=== PATIENT | female | born 1970 | race Caucasian/White ===

== ENCOUNTER 2020-07-08 07:50 | Outpatient (REF) | payer MEDICAID, SELFPAY | END 2020-07-08 07:51 | disposition home or self-care (01) | LOC: HO.LAB 07:50 | PROVIDERS: PCP Pediatrics; Visit Provider Internal Medicine | DX: Z20.828 Contact with and (suspected) exposure to other viral communicable diseases (principal) | CPT/HCPCS: C9803; U0003 ==

== ENCOUNTER → 2020-09-05 11:11 | Outpatient (BNVA) | payer MEDICAID, SELFPAY | PROVIDERS: PCP Pediatrics; Visit Provider Internal Medicine Gastroenterology ==

== ENCOUNTER 2020-09-21 12:01 | Outpatient (REF) | payer MEDICAID, SELFPAY ==
--- NOTE | ~2020-09-21 | MM_ITS ---
EXAMINATION: MM SCREENING DIGITAL BREAST TOMOSYNTHESIS, BILATERAL CLINICAL INFORMATION: Screening. Asymptomatic. COMPARISON: Mammography: May 13, 2019 and studies dating back to February 07, 2014 TECHNIQUE: Digital breast tomosynthesis is performed in both the craniocaudal and mediolateral oblique views along with computer-aided detection (CAD). Synthesized 2D images are generated from the tomosynthesis. FINDINGS: The breasts are heterogeneously dense, which may obscure small masses (ACR BI-RADS breast composition Category c). There are no significant masses, abnormal calcifications, or other abnormalities. MM/MM tomosynthesis screening BI IMPRESSION: There are no significant changes from prior study. ASSESSMENT: BI-RADS 1: Negative RECOMMENDATION: Routine annual mammography screening. This patient's information was entered into a reminder system with a target due date for their next mammogram.
== END 2020-09-21 12:02 | disposition home or self-care (01) ==
LOC: HO.MAMMO 12:01
PROVIDERS: PCP Pediatrics; Visit Provider Pediatrics
DX: Z12.31 Encounter for screening mammogram for malignant neoplasm of breast (principal)
CPT/HCPCS: 77063; 77067

== ENCOUNTER 2020-10-25 09:12 | Outpatient (REF) | payer MEDICAID, SELFPAY ==
[2020-10-25 10:03] LABS: MANUAL DIFF FLAG NO
[2020-10-25 10:19] LABS: Basophils Percent Auto 0.3 % (0-2); Eosinophils Absolute Auto 0.1 X10*3/uL (0.0-0.4); Eosinophils Percent Auto 1.2 % (0-4); Hematocrit 36.9 % (37-47); Imm Gran Abs Auto 0.01 X10*3/uL (0.00-0.03); Imm Gran Pct Auto 0.2 % (0.0-0.4); Lymphocytes Absolute Auto 1.8 X10*3/uL (1.2-4.9); Lymphocytes Percent Auto 28.1 % (20-40); Mean Corpuscular HGB Conc 35.2 g/dl (31.0-35.0); Mean Corpuscular Hemoglobin 31.6 pg (27.0-33.0); Mean Corpuscular Volume 89.6 fL (80-98); Mean Platelet Volume 11.3 fL (9.4-12.3); Monocytes Absolute Auto 0.4 X10*3/uL (0.1-1.2); Monocytes Percent Auto 6.2 % (2-11); Neutrophils Absolute Auto 4.2 X10*3/uL (2.0-8.3); Platelet Count 159 X10*3/uL (160-400); Red Blood Count 4.12 X10*6/uL (4.20-5.50); Red Cell Distribution Width 13.2 % (11.0-16.0); White Blood Count 6.5 X10*3/uL (4.8-10.8)
[2020-10-25 10:32] LABS: Alanine Aminotransferase 19 U/L (0-31); Alkaline Phosphatase 87 U/L (39-117); Anion Gap 13 (12-20); Aspartate Amino Transferase 16 U/L (5-31); Bilirubin Total 0.5 mg/dL (0.0-1.0); Blood Urea Nitrogen 15 mg/dL (9-16); Calcium 8.8 mg/dL (8.4-10.2); Carbon Dioxide 28 mmol/L (22-29); Chloride 106 mmol/L (96-108); Estimated Glomerular Filt Rate > 60; Glucose Random 104 mg/dL (60-115); Potassium 4.1 mmol/L (3.3-5.1); Sodium 143 mmol/L (135-145); Total Protein 6.9 g/dL (6.5-8.0)
[2020-10-25 10:55] LABS: Thyroid Stimulating Hormone 2.96 uIU/mL (0.32-4.0)
== END 2020-10-25 09:13 | disposition home or self-care (01) ==
LOC: HO.LAB 09:12
PROVIDERS: PCP Pediatrics; Visit Provider General Practice
DX: Z00.00 Encounter for general adult medical examination without abnormal findings (principal); K21.9 Gastro-esophageal reflux disease without esophagitis
CPT/HCPCS: 36415; 80053; 84443; 85025

== ENCOUNTER 2020-11-01 09:37 | Day surgery (SDC) | payer MEDICAID, SELFPAY ==
[2020-10-27 11:13] VITALS: BMI 28.3
--- NOTE | 2020-10-31 09:29 | HO.ANESPROP2 ---
Documented by User: Carolyn Vargas 10/31/20 12:19 HPI - Anesthesia Eval Consult details Narrative: 50yo F for Upper Endoscopy Reports adverse reaction to GA - fluid in lung - pt to bring letter PMFSH Active Problems Active Problems: All Active Problems (Updated 10/27/20 @ 11:14 by Renee Alvarez) Epigastric abdominal pain (Acute) Past Medical History Medical History Depression GERD (gastroesophageal reflux disease) History of headache Family History Family History Father Diabetes Pericardial effusion Mother Diabetes Surgical History Surgical History H/O colonoscopy H/O esophagogastroduodenoscopy H/O tubal ligation Social History Social History Household Members: Children Alcohol intake: current Alcohol intake frequency: holidays/special occasions only Smoking Status: Never smoker Use of substances other than those prescribed or required for medical reasons: No Have you been hit, kicked, punched, or otherwise hurt by someone within the past year? If so, by whom?: No Advance Directives Information Provided: No Recently lost weight without trying: No Meds Allergies Allergy/AdvReac Type Severity Reaction Status Date / Time prednisone [PREDNISONE] Allergy Severe ITCHINESS, Verified 09/05/20 11:12 itching, moodiness medroxyprogesterone Allergy Intermediate SHORTNESS Verified 09/05/20 11:12 [From DEPO-PROVERA] OF BREATH general anesthesia AdvReac Intermediate fluid in Uncoded 10/27/20 11:17 lung -per patient Home Medications Medication Instructions Recorded Confirmed Last Taken Type acetaminophen [Tylenol Extra 1,000 mg PO Q6H PRN 10/27/20 10/27/20 Unknown History Strength] cholecalciferol (vitamin D3) 50 mcg PO Q12H 10/27/20 10/27/20 Unknown History [Vitamin D3] lamotrigine [Lamictal] 200 mg PO BEDTIME 10/27/20 10/27/20 Unknown History pantoprazole 40 mg PO BID 10/27/20 10/27/20 Unknown History quetiapine 25 - 50 mg PO BEDTIME 10/27/20 10/27/20 Unknown History sumatriptan succinate 100 mg PO DAILY PRN 10/27/20 10/27/20 Unknown History Exam Exam Date and Time: October 31, 2020 0929 Height,Weight and Vital Signs: Height 4 ft 11 in Weight 63.503 kg Pertinent Lab Results Pertinent Lab Results: Laboratory Tests 10/25/20 10/25/20 09:30 09:30 WBC 6.5 Hgb 13.0 Hct 36.9 L Plt Count 159 L Sodium 143 Potassium 4.1 Chloride 106 Carbon Dioxide 28 BUN 15 Creatinine 0.97 Assessment and Plan Assessment Anesthesia Assessment: Chart Reviewed Documented by User: Emily Grimes 11/01/20 10:58 PMFSH Past Medical History Medical History Depression GERD (gastroesophageal reflux disease) History of headache Family History Family History Father Diabetes Pericardial effusion Mother Diabetes Surgical History Surgical History H/O colonoscopy H/O esophagogastroduodenoscopy H/O tubal ligation Social History Social History Household Members: Children Alcohol intake: current Alcohol intake frequency: holidays/special occasions only Smoking Status: Never smoker Use of substances other than those prescribed or required for medical reasons: No Have you been hit, kicked, punched, or otherwise hurt by someone within the past year? If so, by whom?: No Advance Directives Information Provided: No Recently lost weight without trying: No Meds Allergies Allergy/AdvReac Type Severity Reaction Status Date / Time prednisone [PREDNISONE] Allergy Severe ITCHINESS, Verified 09/05/20 11:12 itching, moodiness medroxyprogesterone Allergy Intermediate SHORTNESS Verified 09/05/20 11:12 [From DEPO-PROVERA] OF BREATH general anesthesia AdvReac Intermediate fluid in Uncoded 10/27/20 11:17 lung -per patient Home Medications Medication Instructions Recorded Confirmed Last Taken Type acetaminophen [Tylenol Extra 1,000 mg PO Q6H PRN 10/27/20 10/27/20 Unknown History Strength] cholecalciferol (vitamin D3) 50 mcg PO Q12H 10/27/20 10/27/20 Unknown History [Vitamin D3] lamotrigine [Lamictal] 200 mg PO BEDTIME 10/27/20 10/27/20 Unknown History pantoprazole 40 mg PO BID 10/27/20 10/27/20 Unknown History quetiapine 25 - 50 mg PO BEDTIME 10/27/20 10/27/20 Unknown History sumatriptan succinate 100 mg PO DAILY PRN 10/27/20 10/27/20 Unknown History Exam Airway Mallampati Class: II TM Dist: >3cm Neck ROM: Full Loose/Missing/Broken Teeth: No Heart: RRR Lungs: CTA Assessment and Plan Assessment Anesthesia Assessment: Anesthesia Plan Discussed and Chart Reviewed Final Anesthetic Review NPO: Yes ASA Class: II Final Preanesthetic Review: Meds/Allgs Chart Reviewed, Consent Obtained/Reviewed and Anes Risks/Benef Reviewed Patient Risk: Low Procedure Risk: Intermediate Anesthetic Plan Anesthetic Plan: MAC: Disposition: Standard PACU
[2020-11-01 10:29] VITALS: BP 134/82; PULSE 68; RESP 18; TEMP 36.6; O2SAT 98
--- NOTE | 2020-11-01 10:32 | P.HPSUR_ITS ---
Pre-Procedural Eval Section B Chief Complaint: epigastric pain Relevant Family History (Specify if Yes): No Relevant Social History: None Present Medications: see Short Stay Collaborative assessment Medical History: Significant History (Depression GERD (gastroesophageal reflux disease) History of headache) History of Previous Operations: Relevant previous surgery/procedure and date(s) (tubal ligation , egd) Allergies: Allergies Allergy/AdvReac Type Severity Reaction Status Date / Time prednisone [PREDNISONE] Allergy Severe ITCHINESS, Verified 09/05/20 11:12 itching, moodiness medroxyprogesterone Allergy Intermediate SHORTNESS Verified 09/05/20 11:12 [From DEPO-PROVERA] OF BREATH general anesthesia AdvReac Intermediate fluid in Uncoded 10/27/20 11:17 lung -per patient Review of Systems Sugical H&P ROS: Negative: Constitution, Cardiovascular, Respiratory, Neurological, Psychiatric, Hem-Onc, Allergic/Immunologic, Gastrointestinal, Genitourinary, Musculoskeletal, Integumentary, Endocrine and Eyes/Ears/Nose/Throat Exam Surgical H&P Exam: Normal: HEENT, Normal: Heart, Normal: Lungs, Normal: Extrem ities, Normal: Abdomen, Normal: Skin and Normal: Neurological Plan Diagnosis/Plan: Unchanged I have reviewed the history and physical and performed a pertinent physical examination on my patient. No changes have occurred unless specified.
[2020-11-01] MEDS: Lactated Ringers 1,000 ML 100 ML IVCONT (10:46)
--- NOTE | 2020-11-01 10:59 | PM.OP ---
Brief Operative Note Date of Service: 11/01/20 Pre-op diagnosis: epigastric pain, GERD Post-op diagnosis: same Procedure: see op note Surgeon: Mora Chavarria MD Anesthesia: MAC Estimated blood loss (mL): 0 Condition: stable Disposition: PACU
--- NOTE | 2020-11-01 11:00 | W.PM.OPN ---
Operative Note Operative Note Date of Service: 11/01/20 Narrative: Procedure Description: EGD FLEXIBLE TRANSORAL UPPER GASTROINTESTINAL ENDOSCOPY UPPER ENDOSCOPY Consent: Indications for the procedure and potential complications of bleeding, perforation, reaction to medications and missed diagnosis were discussed with the patient and informed consent was obtained. Instrument: Olympus GIF H 190 J mid size upper endoscope Monitoring: Vital signs and clinical assessment, continuous EKG monitoring, Pulse oximetry, Carbon Dioxide monitoring and blood pressure monitoring were done throughout the procedure. Procedure: The patient was placed in the left lateral decubitis position and pre-procedure medications were administered and a bite block was placed. The endoscope was inserted into the mouth and advanced under direct vision to the third part of duodenum. A careful inspection was made as the upper endoscope was withdrawn including a retroflexed examination of the proximal stomach; Findings and interventions are described below. Findings: Larynx:normal Esophagus: GE junction at 37 cm, diaphragm hiatus at 39 mc consistent with small 2 cm sliding hiatal hernia. No esophagitis seen, irregular Z line, bx taken Stomach: Mild gastric erythema. Biopsies were obtained for histology and culture of h pylori. Grade 2 flap valve on retroflexed examination of the cardia. There also appeared to be lack of gastric peristalsis. Duodenum: Normal bulb and descending duodenum, bx taken Intervention: Biopsies as noted above Impression and Post Procedure Diagnosis: Endoscopy Findings: gastritis small hiatal hernia possible delayed gastric emptying Plan: Await pathology results gastric emptying study
[2020-11-01 11:18] VITALS: BP 125/70; PULSE 74; RESP 20; TEMP 36.4; O2SAT 100
[2020-11-01 11:33] VITALS: BP 116/77; PULSE 70; RESP 18; O2SAT 99
== END 2020-11-01 12:10 | disposition home or self-care (01) ==
PROVIDERS: PCP Pediatrics; Visit Provider Internal Medicine Gastroenterology
PROC: 0DJ08ZZ Inspection of Upper Intestinal Tract, Via Natural or Artificial Opening Endoscopic (ICD-10-PCS; CPT 43235; principal; 2020-11-01 11:10)
DX: K29.50 Unspecified chronic gastritis without bleeding (principal); K21.9 Gastro-esophageal reflux disease without esophagitis; K44.9 Diaphragmatic hernia without obstruction or gangrene; G43.909 Migraine, unspecified, not intractable, without status migrainosus; Z79.899 Other long term (current) drug therapy; Z88.8 Allergy status to other drugs, medicaments and biological substances
CPT/HCPCS: 43239; 36415; 88305; 88342

== ENCOUNTER 2020-12-08 07:50 | Outpatient (REF) | payer MEDICAID, SELFPAY ==
--- NOTE | ~2020-12-08 | MM_ITS ---
EXAMINATION: MM DIAGNOSTIC DIGITAL BREAST TOMOSYNTHESIS, LEFT Targeted left breast ultrasound CLINICAL INFORMATION: Left breast lump 1:00 position COMPARISON: Mammography: September 21, 2020 and studies dating back to January 20, 2012 TECHNIQUE: Digital breast tomosynthesis is performed in both the craniocaudal and mediolateral oblique views along with computer-aided detection (CAD). Synthesized 2D images are generated from the tomosynthesis. Targeted left breast ultrasound. FINDINGS: The breasts are heterogeneously dense, which may obscure small masses (ACR BI-RADS breast composition Category c). There are no significant masses, abnormal calcifications, or other abnormalities. Targeted left breast ultrasound did not demonstrate any abnormal cystic or solid masses. No region of abnormal distal sound shadowing appreciated. Results are provided to the patient at time of visit by the technologist. MM/MM tomosynthesis diagnostic LT IMPRESSION: There are no significant changes from prior study. ASSESSMENT: BI-RADS 1: Negative RECOMMENDATION: Patient should be managed based on the clinical impression. Otherwise, routine annual screening mammography. This patient's information was entered into a reminder system with a target due date for their next mammogram.
--- NOTE | ~2020-12-08 | US_ITS ---
EXAMINATION: US DIAGNOSTIC ULTRASOUND BREAST, LEFT CLINICAL INFORMATION: Lump. COMPARISON: Mammography of same day and dating back to January 20, 2012. TECHNIQUE: Ultrasound of the breast is performed with real-time beatty scale imaging and color Doppler. FINDINGS: Targeted left breast ultrasound did not demonstrate any abnormal cystic or solid masses. No region of abnormal distal sound shadowing appreciated. Results are provided to the patient at time of visit by the technologist. US/US breast LT limited IMPRESSION: There are no significant changes from prior study. ASSESSMENT: BI-RADS 1: Negative RECOMMENDATION: Patient should be managed based on the clinical impression. Otherwise, routine annual screening mammography.
== END 2020-12-08 07:51 | disposition home or self-care (01) ==
LOC: HO.MAMMO 07:50
PROVIDERS: Visit Provider Pediatrics
DX: N63.21 Unspecified lump in the left breast, upper outer quadrant (principal)
CPT/HCPCS: 76642; 77061; 77065

== ENCOUNTER → 2020-12-26 08:01 | Outpatient (REF) | payer MEDICAID, SELFPAY ==
--- NOTE | ~2020-12-26 | NM_ITS ---
EXAMINATION: SD RADIONUCLIDE SOLID FOOD GASTRIC EMPTYING 4-HOUR STUDY CLINICAL INFORMATION: Epigastric pain. COMPARISON: None TECHNIQUE: A standard meal consisting of 4 oz of Egg Beaters brand tagged with 1.04 microcuries Tc-99m Sulfur Colloid, 8 oz water and 2 slices of toast with jelly was administered orally to the patient. Images were obtained using a dual head gamma camera in the anterior and posterior projections over of the stomach immediately post ingestion and at hourly intervals up to 4 hours post ingestion. The anterior and posterior counts at each time interval were averaged using the geometric mean and expressed as percentage of the immediate post ingestion counts. FINDINGS: There is good visualization of activity in the stomach immediately post ingestion. As the study progresses, there is good clearance of activity from the stomach and visualization of progressively increasing small bowel activity. By the end of the study, there is almost no retention noted in the stomach. Retention in the stomach at each time interval was: 1 hour 90% (normal 37%-90%) 2 hours 49% (normal 30%-60%) 3 hours 27% 4 hours 14% (normal 0%-10%) NM/SD gastric emptying study IMPRESSION: Slight delay in gastric emptying, 14% retained food at 4 hours.
== END ==
LOC: HO.NUCMED 08:01
PROVIDERS: Visit Provider Internal Medicine Gastroenterology
DX: R10.13 Epigastric pain (principal)
CPT/HCPCS: 78264; A9541

== ENCOUNTER 2021-01-30 10:10 | Outpatient (REF) | payer MEDICAID, SELFPAY ==
[2021-01-30 12:25] LABS: Estimated Average Glucose 80 mg/dL; Hemoglobin A1c % 4.4 %
[2021-02-01 23:52] LABS: ANA Pattern 3 Nuclear, Nucleolar; ANA Titer 2 1:40 titer; Anti Nuclear Antibody Screen POSITIVE (NEGATIVE); Anti Nuclear Antibody Titer 1:40 titer
[2021-02-05 19:41] LABS: Hu Antibody Screen, IFA Serum NEGATIVE (NEGATIVE); Yo Antibody, Serum Screen NEGATIVE (NEGATIVE)
== END 2021-01-30 10:11 | disposition home or self-care (01) ==
LOC: HO.LAB 10:10
PROVIDERS: PCP Pediatrics; Visit Provider Internal Medicine Gastroenterology
DX: R10.13 Epigastric pain (principal); R68.81 Early satiety; R79.82 Elevated C-reactive protein (CRP); Z88.8 Allergy status to other drugs, medicaments and biological substances; Z79.899 Other long term (current) drug therapy
CPT/HCPCS: 36415; 83036; 84181; 86038; 86039; 86255; 86256; 99212

== ENCOUNTER 2021-02-14 11:21 | Day surgery (SDC) | payer MEDICAID, SELFPAY ==
[2021-02-08 10:13] VITALS: BMI 28.3
--- NOTE | 2021-02-13 11:45 | P.CONAN_ITS ---
Documented by User: Carolyn Vargas 02/13/21 11:51 HPI - Anesthesia Eval Consult details Narrative: 50yo F for Upper Endoscopy with 100 units if botox Allergy to GA listed in med record. Laryngospasm based on outside facility documentation. Had EGD with MAC 10/2020 without issue. [facility] Active Problems Active Problems: All Active Problems (Updated 02/08/21 @ 10:12 by Carmen Mclain) Epigastric abdominal pain (Acute) Past Medical History Medical History (Updated 02/08/21 @ 10:12 by Carmen Mclain) Depression GERD (gastroesophageal reflux disease) Hiatal hernia History of headache Family History Family History Father Diabetes Pericardial effusion Mother Diabetes Surgical History Surgical History (Updated 02/08/21 @ 10:05 by Carmen Mclain) H/O colonoscopy H/O esophagogastroduodenoscopy H/O tubal ligation Social History Social History Household Members: Children Are you a primary home care and home health aides teacher to a significant other at home: No Do you presently have visiting nurse or other home services: No Alcohol intake: current Alcohol intake frequency: holidays/special occasions only Patient Tobacco Use Status: Never used Tobacco Use of substances other than those prescribed or required for medical reasons: No Have you been hit, kicked, punched, or otherwise hurt by someone within the past year? If so, by whom?: No Are you DNR?: No Advance Directives: No Advance Directives Information Provided: No Advance Directives on File: No Recently lost weight without trying: No Meds Allergies Allergy/AdvReac Type Severity Reaction Status Date / Time prednisone [PREDNISONE] Allergy Severe ITCHINESS, Verified 02/08/21 10:10 itching, moodiness medroxyprogesterone Allergy Intermediate SHORTNESS Verified 02/08/21 10:10 [From DEPO-PROVERA] OF BREATH general anesthesia AdvReac Intermediate fluid in Uncoded 02/08/21 10:10 lung -per patient Home Medications Medication Instructions Recorded Confirmed Last Taken Type acetaminophen [Tylenol Extra 1,000 mg PO Q6H PRN 10/27/20 02/08/21 Unknown History Strength] cholecalciferol (vitamin D3) 50 mcg PO Q12H 10/27/20 02/08/21 Unknown History [Vitamin D3] lamotrigine [Lamictal] 200 mg PO BEDTIME 10/27/20 02/08/21 Unknown History quetiapine 25 - 50 mg PO BEDTIME 10/27/20 02/08/21 Unknown History sumatriptan succinate 100 mg PO DAILY PRN 10/27/20 02/08/21 Unknown History meclizine 1 tab PO DAILY PRN 02/08/21 02/08/21 Unknown History pantoprazole 1 tab PO BID 02/08/21 02/08/21 Unknown History Exam Exam Date and Time: February 13, 2021 1145 Height,Weight and Vital Signs: Height 4 ft 11 in Weight 63.503 kg Assessment and Plan Assessment Anesthesia Assessment: Chart Reviewed Documented by User: Loren Mcfadden 02/14/21 12:08 [facility] Past Medical History Medical History (Updated 02/08/21 @ 10:12 by Carmen Mclain) Depression GERD (gastroesophageal reflux disease) Hiatal hernia History of headache Family History Family History Father Diabetes Pericardial effusion Mother Diabetes Surgical History Surgical History (Updated 02/08/21 @ 10:05 by Carmen Mclain) H/O colonoscopy H/O esophagogastroduodenoscopy H/O tubal ligation Social History Social History Household Members: Children Are you a primary home care and home health aides teacher to a significant other at home: No Do you presently have visiting nurse or other home services: No Alcohol intake: current Alcohol intake frequency: holidays/special occasions only Patient Tobacco Use Status: Never used Tobacco Use of substances other than those prescribed or required for medical reasons: No Have you been hit, kicked, punched, or otherwise hurt by someone within the past year? If so, by whom?: No Are you DNR?: No Advance Directives: No Advance Directives Information Provided: No Advance Directives on File: No Recently lost weight without trying: No Meds Allergies Allergy/AdvReac Type Severity Reaction Status Date / Time prednisone [PREDNISONE] Allergy Severe ITCHINESS, Verified 02/08/21 10:10 itching, moodiness medroxyprogesterone Allergy Intermediate SHORTNESS Verified 02/08/21 10:10 [From DEPO-PROVERA] OF BREATH general anesthesia AdvReac Intermediate fluid in Uncoded 02/08/21 10:10 lung -per patient Home Medications Medication Instructions Recorded Confirmed Last Taken Type acetaminophen [Tylenol Extra 1,000 mg PO Q6H PRN 10/27/20 02/08/21 Unknown History Strength] cholecalciferol (vitamin D3) 50 mcg PO Q12H 10/27/20 02/08/21 Unknown History [Vitamin D3] lamotrigine [Lamictal] 200 mg PO BEDTIME 10/27/20 02/08/21 Unknown History quetiapine 25 - 50 mg PO BEDTIME 10/27/20 02/08/21 Unknown History sumatriptan succinate 100 mg PO DAILY PRN 10/27/20 02/08/21 Unknown History meclizine 1 tab PO DAILY PRN 02/08/21 02/08/21 Unknown History pantoprazole 1 tab PO BID 02/08/21 02/08/21 Unknown History Exam Airway Mallampati Class: II TM Dist: >3cm Neck ROM: Full Heart: rrr Lungs: cta Assessment and Plan Assessment Anesthesia Assessment: Anesthesia Plan Discussed and Chart Reviewed Final Anesthetic Review NPO: Yes ASA Class: II Final Preanesthetic Review: No Changes in Pt Med Stat and Consent Obtained/Reviewed Patient Risk: Intermediate Procedure Risk: Intermediate Anesthetic Plan Anesthetic Plan: MAC: Disposition: Standard PACU
[2021-02-14 11:45] VITALS: BP 125/95; PULSE 78; RESP 20; TEMP 36.8; O2SAT 99
[2021-02-14] MEDS: Lactated Ringers 1,000 ML 100 ML IVCONT (11:52)
--- NOTE | 2021-02-14 11:53 | MHC.SHP ---
Pre-Procedural Eval Section A Date of Service: 02/14/21 The patient is an INPATIENT: No The History & Physical has been completed within 30 days and I have reviewed it.: Yes Section B Chief Complaint: gastroparesis Allergies: Allergies Allergy/AdvReac Type Severity Reaction Status Date / Time prednisone [PREDNISONE] Allergy Severe ITCHINESS, Verified 02/08/21 10:10 itching, moodiness medroxyprogesterone Allergy Intermediate SHORTNESS Verified 02/08/21 10:10 [From DEPO-PROVERA] OF BREATH general anesthesia AdvReac Intermediate fluid in Uncoded 02/08/21 10:10 lung -per patient Plan Diagnosis/Plan: Unchanged I have reviewed the history and physical and performed a pertinent physical examination on my patient. No changes have occurred unless specified. EGD with pyloric botox injection and dilation
--- NOTE | 2021-02-14 12:20 | P.BOP_ITS ---
Brief Operative Note Date of Service: 02/14/21 Pre-op diagnosis: epigastric pain, gastroparesis Post-op diagnosis: same Procedure: see op note Surgeon: Mora Chavarria MD Anesthesia: MAC Was an Cleaning Staff Supervisor used for this Procedure?: No Estimated blood loss (mL): 0 Condition: stable Disposition: PACU
--- NOTE | 2021-02-14 12:21 | W.PM.OPN ---
Operative Note Operative Note Date of Service: 02/14/21 Narrative: Procedure Description: EGD FLEXIBLE TRANSORAL UPPER GASTROINTESTINAL ENDOSCOPY UPPER ENDOSCOPY Consent: Indications for the procedure and potential complications of bleeding, perforation, reaction to medications and missed diagnosis were discussed with the patient and informed consent was obtained. Instrument: Olympus GIF H 190 J mid size upper endoscope Monitoring: Vital signs and clinical assessment, continuous EKG monitoring, Pulse oximetry, Carbon Dioxide monitoring and blood pressure monitoring were done throughout the procedure. Procedure: The patient was placed in the left lateral decubitis position and pre-procedure medications were administered and a bite block was placed. The endoscope was inserted into the mouth and advanced under direct vision to the third part of duodenum. A careful inspection was made as the upper endoscope was withdrawn including a retroflexed examination of the proximal stomach; Findings and interventions are described below. Findings: Larynx:normal Esophagus: GE junction at 37 cm, diaphragm hiatus at 39 mc consistent with small 2 cm sliding hiatal hernia. No esophagitis seen, irregular Z line, bx taken Stomach: Mild gastric erythema. Biopsies were obtained deu to prior hx of h pylori. Grade 2 flap valve on retroflexed examination of the cardia. There also appeared to be lack of gastric peristalsis. A 20 mm pyloric balloon was used to dilate the pylorus and heme was noted around the outlet. 100 units of botox was then injected after dilution in 5 cc saline in 1 cc amounts around the pylorus Duodenum: Normal bulb and descending duodenum, Intervention: Biopsies as noted above, ballon dilation, botox injection Impression and Post Procedure Diagnosis: Endoscopy Findings: gastritis small hiatal hernia delayed gastric emptying Plan: Await pathology results regular diet as tolerated
[2021-02-14 13:08] VITALS: BP 111/73; PULSE 86; RESP 16; TEMP 35.9; O2SAT 98
[2021-02-14 13:23] VITALS: BP 122/85; PULSE 78; RESP 16; TEMP 36.1; O2SAT 99
[2021-02-14] MEDS: Acetaminophen 325 MG TABLET 975 MG PO (13:25)
[2021-02-14] MEDS: Mag&Al/Sim/Diphenhyd/Lidocaine 10 ML ORAL.SUSP PO (13:26)
[2021-02-14 13:38] VITALS: BP 137/84; PULSE 66; RESP 16; O2SAT 97
[2021-02-14 13:53] VITALS: BP 131/80; PULSE 68; RESP 16; O2SAT 99
[2021-02-14 14:08] VITALS: BP 130/87; PULSE 72; RESP 16; TEMP 36.1; O2SAT 97
--- NOTE | 2021-02-14 14:56 | PC.NURSE ---
Patient reported post op epigatric pain. Vitals stable. Dr Chavarria evaluated patient at bedside & okayed her for discharge home. Patient stated Its much better than before . brought to D/C area to be given instructions as well as patient.
== END 2021-02-14 15:08 | disposition home or self-care (01) ==
PROVIDERS: PCP Pediatrics; Visit Provider Internal Medicine Gastroenterology
PROC: 0DJ08ZZ Inspection of Upper Intestinal Tract, Via Natural or Artificial Opening Endoscopic (ICD-10-PCS; CPT 43235; principal; 2021-02-14 12:50)
DX: K31.84 Gastroparesis (principal); K29.50 Unspecified chronic gastritis without bleeding; K21.9 Gastro-esophageal reflux disease without esophagitis; K30 Functional dyspepsia; K44.9 Diaphragmatic hernia without obstruction or gangrene; Z79.899 Other long term (current) drug therapy; Z88.8 Allergy status to other drugs, medicaments and biological substances; Z86.19 Personal history of other infectious and parasitic diseases
CPT/HCPCS: 43245; 43239; 43236; 88305; 88342; C1726; J0585

== ENCOUNTER → 2021-04-11 13:53 | Outpatient (BNVA) | payer MEDICAID, SELFPAY | PROVIDERS: PCP Pediatrics; Visit Provider Internal Medicine Gastroenterology ==

== ENCOUNTER → 2021-08-03 09:26 | Outpatient (BNVA) | payer MEDICAID, SELFPAY | PROVIDERS: PCP Pediatrics; Visit Provider Internal Medicine Gastroenterology ==

== ENCOUNTER 2021-09-26 08:21 | Outpatient (REF) | payer MEDICAID, SELFPAY ==
--- NOTE | ~2021-09-26 | MM_ITS ---
EXAMINATION: MM SCREENING DIGITAL BREAST TOMOSYNTHESIS, BILATERAL CLINICAL INFORMATION: Screening. Asymptomatic. The lifetime risk of breast cancer based on the Tyrer-Cuzick Model is 6%. COMPARISON: Mammography: 12/08/2020, 09/21/2020, 05/13/2019, 04/21/2018, targeted right breast ultrasound 05/01/2018, 02/25/2017, targeted left breast ultrasound 12/08/2020; bilateral breast MRI 05/29/2018. TECHNIQUE: Digital breast tomosynthesis is performed in both the craniocaudal and mediolateral oblique views along with computer-aided detection (CAD). Synthesized 2D images are generated from the tomosynthesis. FINDINGS: The breasts are heterogeneously dense, which may obscure small masses (ACR BI-RADS breast composition Category c). There is fibronodular parenchymal pattern is similar to prior studies. There are scattered shifting fibroglandular parenchymal densities overall similar to prior studies. There is no significant mass or architectural abnormality or developing density. No abnormal calcifications. The axilla and skin contours are unremarkable. MM/MM tomosynthesis screening BI IMPRESSION: No mammographic evidence of malignancy. ASSESSMENT: BI-RADS 2: Benign RECOMMENDATION: Routine annual mammography screening. This patient's information was entered into a reminder system with a target due date for their next mammogram.
== END 2021-09-26 08:22 | disposition home or self-care (01) ==
LOC: HO.MAMMO 08:21
PROVIDERS: PCP Pediatrics; Visit Provider Pediatrics
DX: Z12.31 Encounter for screening mammogram for malignant neoplasm of breast (principal)
CPT/HCPCS: 77063; 77067

== ENCOUNTER 2021-10-09 12:23 | Outpatient (REF) | payer MEDICAID, SELFPAY ==
--- NOTE | ~2021-10-09 | XR_ITS ---
EXAMINATION: XR KNEE, LEFT CLINICAL INFORMATION: Left knee pain COMPARISON: None TECHNIQUE: Four views of the left knee. FINDINGS: There is mild genu varus deformity left knee deformity without any visible fracture, loose body, bony erosive changes or joint effusion. There is a small anterior superior patellar enthesophyte. XR/XR knee LT 4V IMPRESSION: No acute fracture or dislocation. Mild genu varus knee appearance of right knee.
== END 2021-10-09 12:24 | disposition home or self-care (01) ==
LOC: HO.XRAY 12:23
PROVIDERS: PCP Pediatrics; Visit Provider Pediatrics
DX: M25.562 Pain in left knee (principal)
CPT/HCPCS: 73564

== ENCOUNTER → 2021-11-02 08:36 | Outpatient (BNVA) | payer MEDICAID, SELFPAY | PROVIDERS: PCP Pediatrics; Referring Provider Pediatrics; Visit Provider Internal Medicine Gastroenterology | DX: Z13.89 Encounter for screening for other disorder (principal) ==

== ENCOUNTER 2022-01-16 14:01 | Outpatient (REF) | payer MEDICAID, SELFPAY ==
--- NOTE | ~2022-01-16 | US_ITS ---
EXAMINATION: US PELVIS CLINICAL INFORMATION: Pelvic pain. COMPARISON: None. TECHNIQUE: Ultrasound of the pelvis is performed using both transabdominal and transvaginal transducers along with Doppler. Transvaginal imaging is performed due to inadequate visualization transabdominally. FINDINGS: Uterus: The uterus is anteverted and measures 7.6 cm in length, 4.0 mL in AP and 4.3 cm in transverse dimension. The double wall endometrial thickness is 0.8 cm. The uterus is smooth in contour and has normal myometrial echogenicity. No visible fibroid. Adnexa: Both ovaries are visualized. There is normal color flow to the adnexa. There is no ovarian torsion. There is no pelvic ascites or fluid collection. Right ovary measures 3.2 x 1.8 x 1.3 cm and volume 3.9 mL. It appears unremarkable. Previously right ovary measured 2.5 x 1.8 x 2.3 cm. Left ovary measures 2.8 x 2.1 x 1.5 cm and volume 4.6 mL. It appears unremarkable. Previously left ovary measured 2.3 x 1.7 x 1.9 cm. There is no free fluid in the cul-de-sac. US/US pelvic ovarian doppler IMPRESSION: Unremarkable uterus and ovaries. Normal bilateral arterial and venous flow seen to both ovaries on Doppler exam.
--- NOTE | ~2022-01-16 | US_ITS ---
EXAMINATION: US PELVIS CLINICAL INFORMATION: Pelvic pain. COMPARISON: None. TECHNIQUE: Ultrasound of the pelvis is performed using both transabdominal and transvaginal transducers along with Doppler. Transvaginal imaging is performed due to inadequate visualization transabdominally. FINDINGS: Uterus: The uterus is anteverted and measures 7.6 cm in length, 4.0 mL in AP and 4.3 cm in transverse dimension. The double wall endometrial thickness is 0.8 cm. The uterus is smooth in contour and has normal myometrial echogenicity. No visible fibroid. Adnexa: Both ovaries are visualized. There is normal color flow to the adnexa. There is no ovarian torsion. There is no pelvic ascites or fluid collection. Right ovary measures 3.2 x 1.8 x 1.3 cm and volume 3.9 mL. It appears unremarkable. Previously right ovary measured 2.5 x 1.8 x 2.3 cm. Left ovary measures 2.8 x 2.1 x 1.5 cm and volume 4.6 mL. It appears unremarkable. Previously left ovary measured 2.3 x 1.7 x 1.9 cm. There is no free fluid in the cul-de-sac. US/US pelvic and transvaginal IMPRESSION: Unremarkable uterus and ovaries. Normal bilateral arterial and venous flow seen to both ovaries on Doppler exam.
== END 2022-01-16 14:02 | disposition home or self-care (01) ==
LOC: HO.US 14:01
PROVIDERS: PCP Pediatrics; Visit Provider Pediatrics
DX: R10.2 Pelvic and perineal pain (principal)
CPT/HCPCS: 76830; 76856; 93975

== ENCOUNTER 2022-04-29 09:39 | Outpatient (REF) | payer MEDICAID, SELFPAY ==
[2022-04-29 10:39] LABS: MANUAL DIFF FLAG NO
[2022-04-29 10:42] LABS: Basophils Percent Auto 0.3 % (0-2); Eosinophils Absolute Auto 0.1 X10*3/uL (0.0-0.4); Hematocrit 37.2 % (37.0-47.0); Hemoglobin 12.8 g/dl (12.0-16.0); Imm Gran Abs Auto 0.01 X10*3/uL (0.00-0.03); Imm Gran Pct Auto 0.2 % (0.0-0.4); Lymphocytes Absolute Auto 1.6 X10*3/uL (1.2-4.9); Mean Corpuscular HGB Conc 34.4 g/dl (31.0-35.0); Mean Corpuscular Hemoglobin 30.2 pg (27.0-33.0); Mean Corpuscular Volume 87.7 fL (80.0-98.0); Mean Platelet Volume 10.9 fL (9.4-12.3); Monocytes Absolute Auto 0.4 X10*3/uL (0.1-1.2); Monocytes Percent Auto 6.3 % (2-11); Neutrophils Absolute Auto 3.7 x10*3/uL (2.0-8.3); Neutrophils Percent Auto 64.2 % (45-73); Platelet Count 160 X10*3/uL (160-400); Red Blood Count 4.24 X10*6/uL (4.20-5.50); Red Cell Distribution Width 13.8 % (11.0-16.0); White Blood Count 5.7 X10*3/uL (4.8-10.8)
[2022-04-29 11:05] LABS: Alanine Aminotransferase 20 U/L (0-31); Albumin Level 4.1 g/dL (3.5-5.0); Alkaline Phosphatase 95 U/L (39-117); Anion Gap 13 (12-20); Aspartate Amino Transferase 18 U/L (5-31); Bilirubin Total 0.5 mg/dL (0.0-1.0); Blood Urea Nitrogen 15 mg/dL (9-16); C Reactive Protein 0.19 mg/dL (< or = 0.50); Calcium 9.5 mg/dL (8.4-10.2); Carbon Dioxide 28 mmol/L (22-29); Chloride 109 mmol/L (96-108); Estimated Glomerular Filt Rate > 60; Glucose Random 102 mg/dL (60-115); Potassium 4.5 mmol/L (3.3-5.1); Sodium 145 mmol/L (135-145)
[2022-04-29 11:27] LABS: Erythrocyte Sedimentation Rate 14 MM/HR (0-20)
[2022-04-29 14:35] LABS: Protein/Creatinine Ratio, Ur 0.04 (<0.2); Total Protein Urine Random 8 mg/dL (<12)
== END 2022-04-29 09:40 | disposition home or self-care (01) ==
LOC: HO.10HDL 09:39
PROVIDERS: Visit Provider Internal Medicine Rheumatology
DX: M13.0 Polyarthritis, unspecified (principal); M79.601 Pain in right arm; M79.602 Pain in left arm; M25.50 Pain in unspecified joint; R76.8 Other specified abnormal immunological findings in serum; Z79.899 Other long term (current) drug therapy
CPT/HCPCS: 36415; 80053; 84156; 85025; 85652; 86140; 99202

== ENCOUNTER → 2022-05-03 08:55 | Outpatient (BNVA) | payer MEDICAID, SELFPAY | PROVIDERS: PCP Pediatrics; Referring Provider Pediatrics; Visit Provider Internal Medicine Gastroenterology | DX: K21.00 Gastro-esophageal reflux disease with esophagitis, without bleeding (principal); K29.70 Gastritis, unspecified, without bleeding | CPT/HCPCS: 99212 ==

== ENCOUNTER 2022-09-26 11:09 | Day surgery (SDC) | payer MEDICAID, SELFPAY ==
[2022-09-26 11:52] VITALS: BMI 30.1
[2022-09-26 11:56] VITALS: BMI 30.1
[2022-09-26 12:21] VITALS: BP 150/86; PULSE 74; RESP 18; TEMP 36.4; O2SAT 98
--- NOTE | 2022-09-26 12:50 | MHC.SHP ---
Pre-Procedural Eval Section A Date of Service: 09/26/22 Section B Chief Complaint: Gastroparesis,Epigastric pain Relevant Family History (Specify if Yes): No Relevant Social History: None Present Medications: see Short Stay Collaborative assessment Medical History: Significant History (Depression GERD (gastroesophageal reflux disease) Hiatal hernia History of headache) History of Previous Operations: Relevant previous surgery/procedure and date(s) (H/O colonoscopy H/O esophagogastroduodenoscopy H/O tubal ligation) Allergies: Allergies Allergy/AdvReac Type Severity Reaction Status Date / Time prednisone [PREDNISONE] Allergy Severe ITCHINESS, Verified 05/03/22 09:02 itching, moodiness medroxyprogesterone Allergy Intermediate SHORTNESS Verified 05/03/22 09:02 [From DEPO-PROVERA] OF BREATH general anesthesia AdvReac Intermediate fluid in Uncoded 05/03/22 09:02 lung -per patient Review of Systems Sugical H&P ROS: Negative: Constitution, Cardiovascular, Respiratory, Neurological, Psychiatric, Hem-Onc, Allergic/Immunologic, Gastrointestinal, Genitourinary, Musculoskeletal, Integumentary, Endocrine and Eyes/Ears/Nose/Throat Exam Surgical H&P Exam: Normal: HEENT, Normal: Heart, Normal: Lungs, Normal: Extremities, Normal: Abdomen, Normal: Skin and Normal: Neurological Plan Diagnosis/Plan: Unchanged I have reviewed the history and physical and performed a pertinent physical examination on my patient. No changes have occurred unless specified. Time Spent With Patient Time: Total time managing care of this patient today ____ minutes.
--- NOTE | 2022-09-26 12:50 | HO.ANESPROP2 ---
HPI - Anesthesia Eval Consult details Narrative: 52 yr old for upper endo with botox. history of laryngospasm with anesthesia after a PPTL ,requiring positive pressure , succ and lasix. recovered fine after. PMF Active Problems Active Problems: All Active Problems (Updated 04/29/22 @ 09:27 by Jorge Dhaliwal MD) Bilateral arm pain (Acute) Polyarthralgia (Acute) History of headache (Acute) Depression (Acute) YURI positive (Acute) Epigastric abdominal pain (Acute) Past Medical History Medical History Depression GERD (gastroesophageal reflux disease) Hiatal hernia History of headache Family History Family History Father Diabetes Pericardial effusion Mother Diabetes Family history of problems with anesthesia: No Surgical History Surgical History H/O colonoscopy H/O esophagogastroduodenoscopy H/O tubal ligation History of Problems with Anesthesia: No Social History Social History Household Members: Children Are you a primary acute care nurse practitioner to a significant other at home: No Do you presently have visiting nurse or other home services: No Alcohol intake: current Alcohol intake frequency: holidays/special occasions only Patient Tobacco Use Status: Never used Tobacco Use of substances other than those prescribed or required for medical reasons: No Are you DNR?: No Advance Directives: No Advance Directives Information Provided: Yes Meds Allergies Allergy/AdvReac Type Severity Reaction Status Date / Time prednisone [PREDNISONE] Allergy Severe ITCHINESS, Verified 05/03/22 09:02 itching, moodiness medroxyprogesterone Allergy Intermediate SHORTNESS Verified 05/03/22 09:02 [From DEPO-PROVERA] OF BREATH general anesthesia AdvReac Intermediate fluid in Uncoded 05/03/22 09:02 lung -per patient Home Medications Medication Instructions Recorded Confirmed Last Taken Type acetaminophen 500 mg tablet 1,000 mg PO Q6H PRN Pain 10/27/20 09/26/22 Unknown History (Tylenol Extra Strength) cholecalciferol (vitamin D3) 50 50 mcg PO Q12H 10/27/20 09/26/22 Unknown History mcg (2,000 unit) capsule (Vitamin D3) meclizine 25 mg tablet 1 tab PO DAILY PRN Dizziness 02/08/21 09/26/22 Unknown History lamotrigine 150 mg tablet 150 mg PO BEDTIME 04/11/21 09/26/22 Unknown History amitriptyline 50 mg tablet 50 mg PO BEDTIME 04/29/22 09/26/22 Unknown History pregabalin 75 mg capsule 75 mg PO BID 05/03/22 09/26/22 Unknown History quetiapine 25 mg tablet 50 mg PO BEDTIME 05/03/22 09/26/22 Unknown History rizatriptan 5 mg tablet 1 tab PO QD-BID PRN Migraine 09/26/22 09/26/22 Unknown History Headache Exam Exam Date and Time: September 26, 2022 1250 Height,Weight and Vital Signs: Height 4 ft 11 in Weight 67.585 kg Last Vital Signs Temp 97.5 F 09/26/22 12:21 Pulse 74 09/26/22 12:21 Resp 18 09/26/22 12:21 BP 150/86 H 09/26/22 12:21 Pulse Ox 98 09/26/22 12:21 O2 Del Method 09/26/22 12:21 Airway Mallampati Class: II TM Dist: >3cm Neck ROM: Full Heart: rrr Lungs: cta Assessment and Plan Assessment Anesthesia Assessment: Anesthesia Plan Discussed and Chart Reviewed Final Anesthetic Review Family History of Problems with Anesthesia: No History of Problems with Anesthesia: No NPO: Yes ASA Class: III Final Preanesthetic Review: No Changes in Pt Med Stat, Meds/Allgs Chart Reviewed, Consent Obtained/Reviewed and Anes Risks/Benef Reviewed Patient Risk: Low Procedure Risk: Low Anesthetic Plan Anesthetic Plan: MAC: Disposition: Standard PACU
--- NOTE | 2022-09-26 12:51 | W.PM.OPN ---
Operative Note Operative Note Date of Service: 09/26/22 Narrative: Procedure Description: EGD Indication: epigastric pain, hx of gastroparesis Anesthesia: MAC FLEXIBLE TRANSORAL UPPER GASTROINTESTINAL ENDOSCOPY UPPER ENDOSCOPY Consent: Indications for the procedure and potential complications of bleeding, perforation, reaction to medications and missed diagnosis were discussed with the patient and informed consent was obtained. Instrument: Olympus GIF H 190 J mid size upper endoscope Monitoring: Vital signs and clinical assessment, continuous EKG monitoring, Pulse oximetry, Carbon Dioxide monitoring and blood pressure monitoring were done throughout the procedure. Procedure: The patient was placed in the left lateral decubitis position and pre-procedure medications were administered and a bite block was placed. The endoscope was inserted into the mouth and advanced under direct vision to the third part of duodenum. A careful inspection was made as the upper endoscope was withdrawn including a retroflexed examination of the proximal stomach; Findings and interventions are described below. Findings: Larynx:normal Esophagus: GE junction at 37 cm, diaphragm hiatus at 39 cm, consistent with 2 cm sliding hiatal hernia, bogginess and erythema noted at GEJ, bx taken from GEJ and distal esophagus Stomach: Normal mucosa. Biopsies were obtained. Grade 2 flap valve on retroflexed examination of the cardia. There was improved peristalsis as compared to before. The pylorus was dialted to 20 mm with balloon and then 100 units of botox injected around the pyloric outlet Duodenum: Normal bulb and descending duodenum, Intervention: Biopsies as noted above, balloon dilation and botox injection Impression/Findings: esophagitis small hiatal hernia PLAN: PO diet as tolerated today check compliance with PPI GERd precautions
[2022-09-26 13:40] VITALS: BP 112/62; PULSE 67; RESP 16; TEMP 36.6; O2SAT 95
[2022-09-26 13:55] VITALS: BP 125/84; PULSE 68; RESP 16; TEMP 36.5; O2SAT 100
[2022-09-26 14:10] VITALS: BP 130/83; PULSE 59; RESP 16; TEMP 36.4; O2SAT 100
== END 2022-09-26 14:37 | disposition home or self-care (01) ==
PROVIDERS: PCP Pediatrics; Visit Provider Internal Medicine Gastroenterology
PROC: (CPT 43245; principal; 2022-09-26 12:40)
DX: R10.13 Epigastric pain (principal); K31.84 Gastroparesis; K20.80 Other esophagitis without bleeding; K44.9 Diaphragmatic hernia without obstruction or gangrene
CPT/HCPCS: 43245; 43239; 43236; 88305; 88342; C1726; J0585; J3010

== ENCOUNTER → 2022-10-18 10:12 | Outpatient (BNVA) | payer MEDICAID, SELFPAY | PROVIDERS: PCP Pediatrics; Visit Provider Internal Medicine Gastroenterology | DX: M25.50 Pain in unspecified joint (principal); F32.9 Major depressive disorder, single episode, unspecified; R10.13 Epigastric pain | CPT/HCPCS: 99212 ==

== ENCOUNTER 2022-11-25 12:02 | Outpatient (REF) | payer MEDICAID, SELFPAY ==
[2022-11-25 12:18] LABS: MANUAL DIFF FLAG NO
[2022-11-25 12:27] LABS: Basophils Percent Auto 0.3 % (0-2); Eosinophils Percent Auto 0.2 % (0-4); Hematocrit 37.5 % (37.0-47.0); Hemoglobin 13.1 g/dl (12.0-16.0); Imm Gran Abs Auto 0.03 X10*3/uL (0.00-0.03); Imm Gran Pct Auto 0.3 % (0.0-0.4); Lymphocytes Absolute Auto 1.5 X10*3/uL (1.2-4.9); Lymphocytes Percent Auto 16.8 % (20-40); Mean Corpuscular HGB Conc 34.9 g/dl (31.0-35.0); Mean Corpuscular Hemoglobin 30.3 pg (27.0-33.0); Mean Corpuscular Volume 86.6 fL (80.0-98.0); Mean Platelet Volume 10.5 fL (9.4-12.3); Monocytes Absolute Auto 0.5 X10*3/uL (0.1-1.2); Monocytes Percent Auto 5.2 % (2-11); Neutrophils Percent Auto 77.2 % (45-73); Platelet Count 197 X10*3/uL (160-400); Red Blood Count 4.33 X10*6/uL (4.20-5.50); Red Cell Distribution Width 13.4 % (11.0-16.0)
[2022-11-25 13:19] LABS: Erythrocyte Sedimentation Rate 38 MM/HR (0-20)
[2022-11-25 13:33] LABS: Alanine Aminotransferase 16 U/L (0-31); Albumin Level 4.1 g/dL (3.5-5.0); Alkaline Phosphatase 110 U/L (39-117); Anion Gap 12 (12-20); Aspartate Amino Transferase 15 U/L (5-31); Bilirubin Total 0.8 mg/dL (0.0-1.0); Blood Urea Nitrogen 12 mg/dL (9-16); C Reactive Protein 1.68 mg/dL (< or = 0.50); Calcium 9.6 mg/dL (8.4-10.2); Carbon Dioxide 28 mmol/L (22-29); Chloride 107 mmol/L (96-108); Estimated Glomerular Filt Rate > 60; Glucose Random 112 mg/dL (60-115); Iron 65 mcg/dL (30-160); Percent Iron Saturation 27 % (15-50); Potassium 4.2 mmol/L (3.3-5.1); Sodium 143 mmol/L (135-145); Total Iron Binding Capacity 239 mcg/dL (228-428); Total Protein 7.3 g/dL (6.5-8.0); Unsaturated Iron Binding 174 ug/dL
[2022-11-25 13:50] LABS: Ferritin 236 ng/mL (10-250); Folate 9.6 ng/mL (> or = 4.0); Vitamin B12 1156 pg/mL (200-900)
[2022-11-29 05:28] LABS: Zinc 83 mcg/dL (60-130)
[2022-11-29 08:43] LABS: Anti Nuclear Antibody Screen NEGATIVE (NEGATIVE)
[2022-11-29 16:28] LABS: Histamine Plasma <1.5 ng/mL (< OR = 1.8)
[2022-11-29 16:44] LABS: Vitamin B6 12.6 ng/mL (2.1-21.7)
[2022-12-01 18:07] LABS: Vitamin A 30 mcg/dL (38-98)
== END 2022-11-25 12:03 | disposition home or self-care (01) ==
LOC: HO.LAB 12:02
PROVIDERS: PCP Pediatrics; Visit Provider Internal Medicine Gastroenterology
DX: F32.9 Major depressive disorder, single episode, unspecified (principal); M25.50 Pain in unspecified joint; R10.13 Epigastric pain; K75.81 Nonalcoholic steatohepatitis (NASH); R19.7 Diarrhea, unspecified; R79.82 Elevated C-reactive protein (CRP)
CPT/HCPCS: 36415; 80053; 82607; 82728; 82746; 83088; 83520; 83540; 84207; 84590; 84630; 85025; 85652; 86038; 86039; 86140

== ENCOUNTER 2022-11-27 09:15 | Outpatient (REF) | payer MEDICAID, SELFPAY ==
--- NOTE | ~2022-11-27 | CT_ITS ---
EXAMINATION: CT ENTEROGRAPHY ABDOMEN AND PELVIS WITH CONTRAST CLINICAL INFORMATION: Periumbilical pain COMPARISON: Previous abdominal ultrasound April [address] of the abdomen and pelvis April 2016 TECHNIQUE: Study performed with oral VoLumen (1350 mL) and 480 mL of water to distend the abdomen. The patient was injected with 85 mL Omnipaque 350 intravenous contrast which was administered without adverse effect. Coronal and sagittal reformatted images were obtained at the technologist's workstation. This CT examination was performed using dose optimization techniques as appropriate, variously including the following: *Automated exposure control *Adjustment of mA and/or kV according to patient size (this includes techniques or standardized protocols for targeted exams where dose is matched to indication/reason for exam; i.e. extremities or head) *Use of iterative reconstruction technique DLP: 381 mGy-cm FINDINGS: GASTROINTESTINAL FINDINGS: Stomach: Well-distended and normal in appearance. Small intestine: Satisfactorily distended and normal in appearance. Large intestine: Well-distended and normal in appearance. No perirectal changes demonstrated. The appendix is normal. Additional findings: No abnormal enhancement of the vasa recta or significant mesenteric or retroperitoneal lymphadenopathy is seen. No abdominal abscess or fistulous tract demonstrated. ABDOMINAL AND PELVIC CT FINDINGS: Liver, gallbladder, biliary tract: Normal Pancreas: Normal Spleen: Normal Adrenal glands and kidneys: Normal Ureters and bladder: Normal Lymphovascular structures: No adenopathy. No ascites. There is reflux in the left ovarian vein. Vascular structures are otherwise normal. Bones: Normal Lung bases: Normal CT/CT enterography IMPRESSION: Normal CT enterography exam. Reflux in the left ovarian vein.
[2022-11-27] MEDS: Sorbitol/Mannit/Xanth Imaging 500 ML LIQUID 1500 ML PO (10:16)
[2022-11-27] MEDS: iohexoL 350 MG/ML 100 ML INFUS..BTL IV (10:17)
== END 2022-11-27 09:16 | disposition home or self-care (01) ==
LOC: HO.CT 09:15
PROVIDERS: PCP Pediatrics; Visit Provider Internal Medicine Gastroenterology
DX: R10.33 Periumbilical pain (principal)
CPT/HCPCS: 74177; Q9967

== ENCOUNTER 2022-12-02 15:19 | Outpatient (REF) | payer MEDICAID, SELFPAY ==
--- NOTE | ~2022-12-02 | MM_ITS ---
EXAMINATION: MM SCREENING DIGITAL BREAST TOMOSYNTHESIS, BILATERAL CLINICAL INFORMATION: Screening. Asymptomatic. The lifetime risk of breast cancer based on the Tyrer-Cuzick Model is 7%. COMPARISON: Mammography: 09/26/2021, 12/08/2020, 09/21/2020, 05/13/2019 TECHNIQUE: Digital breast tomosynthesis is performed in both the craniocaudal and mediolateral oblique views along with computer-aided detection (CAD). Synthesized 2D images are generated from the tomosynthesis. FINDINGS: The breasts are heterogeneously dense, which may obscure small masses (ACR BI-RADS breast composition Category c). Breast tissue composition borders on average fibroglandular. Parenchymal pattern is similar to prior studies. There is no developing density or architectural abnormality or significant changes. There are no significant masses, abnormal calcifications, or other abnormalities. There are benign bilateral vascular calcifications. The axilla and skin contours are unremarkable. MM/MM tomosynthesis screening BI IMPRESSION: No mammographic evidence of malignancy. ASSESSMENT: BI-RADS 2: Benign RECOMMENDATION: Routine annual mammography screening. This patient's information was entered into a reminder system with a target due date for their next mammogram.
== END 2022-12-02 15:20 | disposition home or self-care (01) ==
LOC: HO.MAMMO 15:19
PROVIDERS: PCP Pediatrics; Visit Provider Pediatrics
DX: Z12.31 Encounter for screening mammogram for malignant neoplasm of breast (principal)
CPT/HCPCS: 77063; 77067

== ENCOUNTER → 2022-12-13 09:40 | Outpatient (BNVA) | payer MEDICAID, SELFPAY | PROVIDERS: PCP Pediatrics; Visit Provider Internal Medicine Gastroenterology ==

== ENCOUNTER → 2022-12-26 08:25 | Outpatient (BNVA) | payer MEDICAID, SELFPAY | PROVIDERS: PCP Pediatrics; Visit Provider Internal Medicine Gastroenterology | DX: R10.9 Unspecified abdominal pain (principal) | CPT/HCPCS: 91110 ==

== ENCOUNTER → 2023-02-07 07:25 | Day surgery (SDC) | payer MEDICAID, SELFPAY ==
[2023-02-05 14:10] VITALS: BMI 30.1
[2023-02-07 07:51] VITALS: BMI 28.9
[2023-02-07 08:06] VITALS: BP 114/82; PULSE 72; RESP 16; TEMP 36.7; O2SAT 99
[2023-02-07] MEDS: Lactated Ringers 1,000 ML 100 ML IVCONT (08:18)
--- NOTE | 2023-02-07 08:19 | PC.NURSE ---
This nurse discussed with patient her recorded allergy of General Anesthesia . Patient states The last time I had general anesthesia, I had complications in recovery with fluid in my lungs and I coughed up blood . Dr. Grimes made aware.
--- NOTE | 2023-02-07 08:44 | HO.ANESPROP2 ---
[facility] Active Problems Active Problems: All Active Problems (Updated 04/29/22 @ 09:27 by Jorge Dhaliwal MD) Epigastric abdominal pain (Acute) YURI positive (Acute) Polyarthralgia (Acute) Bilateral arm pain (Acute) History of headache (Acute) Depression (Acute) Past Medical History Medical History Depression GERD (gastroesophageal reflux disease) Hiatal hernia History of headache Family History Family History Father Diabetes Pericardial effusion Mother Diabetes Family history of problems with anesthesia: No Surgical History Surgical History H/O colonoscopy H/O esophagogastroduodenoscopy H/O tubal ligation History of Problems with Anesthesia: No Social History Social History Household Members: Children Are you a primary residential care officer to a significant other at home: No Do you presently have visiting nurse or other home services: No Alcohol intake: current Alcohol intake frequency: holidays/special occasions only Patient Tobacco Use Status: Never used Tobacco Use of substances other than those prescribed or required for medical reasons: No Are you DNR?: No Advance Directives: No Advance Directives Information Provided: Yes Meds Allergies Allergy/AdvReac Type Severity Reaction Status Date / Time prednisone [PREDNISONE] Allergy Severe ITCHINESS, Verified 02/07/23 08:18 itching, moodiness medroxyprogesterone Allergy Intermediate SHORTNESS Verified 02/07/23 08:18 [From DEPO-PROVERA] OF BREATH general anesthesia AdvReac Intermediate fluid in Uncoded 02/07/23 08:18 lung -per patient Active Medications: Current Medications Lactated Ringer's (Lr) 1,000 mls @ 100 mls/hr IVCONT .Q10H CRISS Last Admin: 02/07/23 08:18 Dose: 100 mls/hr Home Medications Medication Instructions Recorded Confirmed Last Taken Type acetaminophen 500 mg tablet 1,000 mg PO Q6H PRN Pain 10/27/20 02/07/23 Unknown History (Tylenol Extra Strength) cholecalciferol (vitamin D3) 50 50 mcg PO Q12H 10/27/20 02/07/23 Unknown History mcg (2,000 unit) capsule (Vitamin D3) meclizine 25 mg tablet 1 tab PO DAILY PRN Dizziness 02/08/21 02/07/23 Unknown History lamotrigine 150 mg tablet 150 mg PO BEDTIME 04/11/21 02/07/23 Unknown History amitriptyline 50 mg tablet 50 mg PO BEDTIME 04/29/22 02/07/23 Unknown History pregabalin 75 mg capsule 75 mg PO BID 05/03/22 02/07/23 Unknown History quetiapine 25 mg tablet 50 mg PO BEDTIME 05/03/22 02/07/23 Unknown History rizatriptan 5 mg tablet 1 tab PO QD-BID PRN Migraine 09/26/22 02/07/23 Unknown History Headache Exam Exam Date and Time: February 07, 2023 0844 Height,Weight and Vital Signs: Height 4 ft 11 in Weight 64.864 kg Last Vital Signs Temp 98.0 F 02/07/23 08:06 Pulse 72 02/07/23 08:06 Resp 16 02/07/23 08:06 BP 114/82 02/07/23 08:06 Pulse Ox 99 02/07/23 08:06 O2 Del Method Room Air 02/07/23 08:06 Airway Mallampati Class: II TM Dist: >3cm Neck ROM: Full Denture: Upper Loose/Missing/Broken Teeth: Yes, Upper and Lower Heart: RRR Lungs: CTA Assessment and Plan Final Anesthetic Review Family History of Problems with Anesthesia: No History of Problems with Anesthesia: No NPO: Yes ASA Class: III Final Preanesthetic Review: Meds/Allgs Chart Reviewed, Consent Obtained/Reviewed and Anes Risks/Benef Reviewed Patient Risk: Intermediate Procedure Risk: Intermediate Anesthetic Plan Anesthetic Plan: MAC: Disposition: Standard PACU
--- NOTE | 2023-02-07 09:33 | PC.NURSE ---
Dr. Chavarria at bedside with patient and patients . Case cancelled due to lack of proper equipment for procedure, Pill cam device not in house. Patient to reschedule with Dr. Linares office. Lunch voucher given to patient from [facility].
== END ==
PROVIDERS: PCP Internal Medicine; Visit Provider Internal Medicine Gastroenterology
DX: K52.9 Noninfective gastroenteritis and colitis, unspecified (principal); Z53.29 Procedure and treatment not carried out because of patient's decision for other reasons; Z88.4 Allergy status to anesthetic agent

== ENCOUNTER 2023-03-13 06:21 | Day surgery (SDC) | payer MEDICAID, SELFPAY ==
[2023-03-11 15:38] VITALS: BMI 28.9
--- NOTE | 2023-03-13 06:26 | MHC.SHP ---
Pre-Procedural Eval Section A Date of Service: 03/13/23 Section B Chief Complaint: Epigastric pain Details of Present Illness: pill placement and pyloric dilation Relevant Family History (Specify if Yes): No Relevant Social History: None Present Medications: see Short Stay Collaborative assessment Medical History: Significant History (Depression GERD (gastroesophageal reflux disease) Hiatal hernia History of headache) History of Previous Operations: Relevant previous surgery/procedure and date(s) (H/O colonoscopy H/O esophagogastroduodenoscopy H/O tubal ligation) Allergies: Allergies Allergy/AdvReac Type Severity Reaction Status Date / Time prednisone [PREDNISONE] Allergy Severe ITCHINESS, Verified 02/07/23 08:18 itching, moodiness medroxyprogesterone Allergy Intermediate SHORTNESS Verified 02/07/23 08:18 [From DEPO-PROVERA] OF BREATH general anesthesia AdvReac Intermediate fluid in Uncoded 02/07/23 08:18 lung -per patient Review of Systems Sugical H&P ROS: Negative: Constitution, Cardiovascular, Respiratory, Neurological, Psychiatric, Hem-Onc, Allergic/Immunologic, Gastrointestinal, Genitourinary, Musculoskeletal, Integumentary, Endocrine and Eyes/Ears/Nose/Throat Exam Surgical H&P Exam: Normal: HEENT, Normal: Heart, Normal: Lungs, Normal: Extremities, Normal: Abdomen, Normal: Skin and Normal: Neurological Plan Diagnosis/Plan: Unchanged I have reviewed the history and physical and performed a pertinent physical examination on my patient. No changes have occurred unless specified. Time Spent With Patient Time: Total time managing care of this patient today ____ minutes.
[2023-03-13 06:45] VITALS: BP 123/80; PULSE 64; RESP 15; TEMP 36; O2SAT 97
[2023-03-13] MEDS: Lactated Ringers 1,000 ML 100 ML IVCONT (06:54)
--- NOTE | 2023-03-13 07:20 | HO.ANESPROP2 ---
Documented by User: Carolyn Vargas NP 03/12/23 10:59 HPI - Anesthesia Eval Consult details Narrative: 52yo F for Pyloric Balloon Upper Endoscopy PillCam Placement PMFSH Active Problems Active Problems: All Active Problems (Updated 04/29/22 @ 09:27 by Jorge Dhaliwal MD) Epigastric abdominal pain (Acute) YURI positive (Acute) Polyarthralgia (Acute) Bilateral arm pain (Acute) History of headache (Acute) Depression (Acute) Past Medical History Medical History Depression GERD (gastroesophageal reflux disease) Hiatal hernia History of headache Family History Family History Father Diabetes Pericardial effusion Mother Diabetes Family history of problems with anesthesia: No Surgical History Surgical History H/O colonoscopy H/O esophagogastroduodenoscopy H/O tubal ligation History of Problems with Anesthesia: No Social History Social History Household Members: Children Are you a primary direct support professional caregiver to a significant other at home: No Do you presently have visiting nurse or other home services: No Alcohol intake: current Alcohol intake frequency: holidays/special occasions only Patient Tobacco Use Status: Never used Tobacco Use of substances other than those prescribed or required for medical reasons: No Are you DNR?: No Advance Directives: No Advance Directives Information Provided: Yes Meds Allergies Allergy/AdvReac Type Severity Reaction Status Date / Time prednisone [PREDNISONE] Allergy Severe ITCHINESS, Verified 03/13/23 06:34 itching, moodiness medroxyprogesterone Allergy Intermediate SHORTNESS Verified 03/13/23 06:34 [From DEPO-PROVERA] OF BREATH general anesthesia AdvReac Intermediate fluid in Uncoded 02/07/23 08:18 lung -per patient Home Medications Medication Instructions Recorded Confirmed Last Taken Type acetaminophen 500 mg tablet 1,000 mg PO Q6H PRN Pain 10/27/20 03/13/23 Unknown History (Tylenol Extra Strength) cholecalciferol (vitamin D3) 50 50 mcg PO Q12H 10/27/20 03/13/23 Unknown History mcg (2,000 unit) capsule (Vitamin D3) meclizine 25 mg tablet 1 tab PO DAILY PRN Dizziness 02/08/21 03/13/23 Unknown History lamotrigine 150 mg tablet 150 mg PO BEDTIME 04/11/21 03/13/23 Unknown History amitriptyline 50 mg tablet 50 mg PO BEDTIME 04/29/22 03/13/23 Unknown History pregabalin 75 mg capsule 75 mg PO BID 05/03/22 03/13/23 Unknown History quetiapine 25 mg tablet 50 mg PO BEDTIME 05/03/22 03/13/23 Unknown History rizatriptan 5 mg tablet 1 tab PO QD-BID PRN Migraine 09/26/22 03/13/23 Unknown History Headache ondansetron 4 mg disintegrating 4 mg PO Q8H PRN Nausea And Vomiting 03/13/23 03/13/23 Unknown History tablet Exam Exam Date and Time: March 12, 2023 1058 Height,Weight and Vital Signs: Height 4 ft 11 in Weight 64.864 kg Assessment and Plan Assessment Anesthesia Assessment: Chart Reviewed Final Anesthetic Review Family History of Problems with Anesthesia: No History of Problems with Anesthesia: No Documented by User: Rayna Stuart DO 03/13/23 07:26 [facility] Past Medical History Medical History Depression GERD (gastroesophageal reflux disease) Hiatal hernia History of headache Family History Family History Father Diabetes Pericardial effusion Mother Diabetes Family history of problems with anesthesia: No Surgical History Surgical History H/O colonoscopy H/O esophagogastroduodenoscopy H/O tubal ligation History of Problems with Anesthesia: Yes (fluid in lungs with GA) Social History Social History Household Members: Children Are you a primary direct support professional caregiver to a significant other at home: No Do you presently have visiting nurse or other home services: No Alcohol intake: current Alcohol intake frequency: holidays/special occasions only Patient Tobacco Use Status: Never used Tobacco Use of substances other than those prescribed or required for medical reasons: No Are you DNR?: No Advance Directives: No Advance Directives Information Provided: Yes Meds Allergies Allergy/AdvReac Type Severity Reaction Status Date / Time prednisone [PREDNISONE] Allergy Severe ITCHINESS, Verified 03/13/23 06:34 itching, moodiness medroxyprogesterone Allergy Intermediate SHORTNESS Verified 03/13/23 06:34 [From DEPO-PROVERA] OF BREATH general anesthesia AdvReac Intermediate fluid in Uncoded 02/07/23 08:18 lung -per patient Home Medications Medication Instructions Recorded Confirmed Last Taken Type acetaminophen 500 mg tablet 1,000 mg PO Q6H PRN Pain 10/27/20 03/13/23 Unknown History (Tylenol Extra Strength) cholecalciferol (vitamin D3) 50 50 mcg PO Q12H 10/27/20 03/13/23 Unknown History mcg (2,000 unit) capsule (Vitamin D3) meclizine 25 mg tablet 1 tab PO DAILY PRN Dizziness 02/08/21 03/13/23 Unknown History lamotrigine 150 mg tablet 150 mg PO BEDTIME 04/11/21 03/13/23 Unknown History amitriptyline 50 mg tablet 50 mg PO BEDTIME 04/29/22 03/13/23 Unknown History pregabalin 75 mg capsule 75 mg PO BID 05/03/22 03/13/23 Unknown History quetiapine 25 mg tablet 50 mg PO BEDTIME 05/03/22 03/13/23 Unknown History rizatriptan 5 mg tablet 1 tab PO QD-BID PRN Migraine 09/26/22 03/13/23 Unknown History Headache ondansetron 4 mg disintegrating 4 mg PO Q8H PRN Nausea And Vomiting 03/13/23 03/13/23 Unknown History tablet Exam Exam Date and Time: March 13, 2023719 Height,Weight and Vital Signs: Height 4 ft 11 in Weight 64.864 kg Vital Signs Temperature 96.8 F 03/13/23 06:45 Pulse Rate 64 03/13/23 06:45 Respiratory Rate 15 03/13/23 06:45 Blood Pressure 123/80 03/13/23 06:45 Pulse Oximetry 97 03/13/23 06:45 Oxygen Delivery Method Room Air 03/13/23 06:45 Temperature 96.8 F 03/13/23 06:45 Pulse Rate 64 03/13/23 06:45 Respiratory Rate 15 03/13/23 06:45 Blood Pressure 123/80 03/13/23 06:45 Pulse Oximetry 97 03/13/23 06:45 Oxygen Delivery Method Room Air 03/13/23 06:45 Airway Mallampati Class: I TM Dist: >3cm Neck ROM: Full Loose/Missing/Broken Teeth: No Heart: S1S2 Lungs: CTAB Assessment and Plan Assessment Anesthesia Assessment: Anesthesia Plan Discussed and Chart Reviewed Final Anesthetic Review Family History of Problems with Anesthesia: No History of Problems with Anesthesia: Yes (fluid in lungs with GA) NPO: Yes ASA Class: II Final Preanesthetic Review: No Changes in Pt Med Stat, Meds/Allgs Chart Reviewed, Consent Obtained/Reviewed and Anes Risks/Benef Reviewed Patient Risk: Low Procedure Risk: Low Anesthetic Plan Anesthetic Plan: MAC: and Agree w/ Assess. and Plan Disposition: Standard PACU
--- NOTE | 2023-03-13 08:21 | W.PM.OPN ---
Operative Note Operative Note Date of Service: 03/13/23 Narrative: Procedure Description: EGD Indication: pyloric dilation and pill cam placement Anesthesia: MAC FLEXIBLE TRANSORAL UPPER GASTROINTESTINAL ENDOSCOPY UPPER ENDOSCOPY Consent: Indications for the procedure and potential complications of bleeding, perforation, reaction to medications and missed diagnosis were discussed with the patient and informed consent was obtained. Instrument: Olympus GIF H 190 J mid size upper endoscope Monitoring: Vital signs and clinical assessment, continuous EKG monitoring, Pulse oximetry, Carbon Dioxide monitoring and blood pressure monitoring were done throughout the procedure. Procedure: The patient was placed in the left lateral decubitis position and pre-procedure medications were administered and a bite block was placed. The endoscope was inserted into the mouth and advanced under direct vision to the third part of duodenum. A careful inspection was made as the upper endoscope was withdrawn including a retroflexed examination of the proximal stomach; Findings and interventions are described below. Findings: Larynx:normal Esophagus: GE junction at 38 cm, diaphragm hiatus at 38 cm, mild esophagitis noted with bogginess at GEJ Stomach: Patchy gastric erythema with retained food noted. Pylorus was dilated with balloon to 20 mm. Grade 2 flap valve on retroflexed examination of the cardia. Duodenum: Normal bulb and descending duodenum, pill cam capsule was deployed in the small bowel Intervention: pyloric dilation, pill cam insertion Impression/Findings: possible gastroparesis esophagitis PLAN: await capasule results, gastroparesis diet, (pos GES in past)
[2023-03-13 08:52] VITALS: BP 97/60; PULSE 74; RESP 20; TEMP 36.1; O2SAT 95
[2023-03-13 09:07] VITALS: BP 101/61; PULSE 61; RESP 16; O2SAT 98
[2023-03-13 09:22] VITALS: BP 113/79; PULSE 70; RESP 20; TEMP 36.4; O2SAT 97
== END 2023-03-13 09:44 | disposition home or self-care (01) ==
PROVIDERS: PCP Internal Medicine; Visit Provider Internal Medicine Gastroenterology
PROC: (CPT 91111; principal; 2023-03-13 07:30)
DX: K20.80 Other esophagitis without bleeding (principal); K21.9 Gastro-esophageal reflux disease without esophagitis; K44.9 Diaphragmatic hernia without obstruction or gangrene; F32.A Depression, unspecified; Z79.899 Other long term (current) drug therapy
CPT/HCPCS: 91111; 43245; C1726

== ENCOUNTER → 2023-03-13 06:21 | Outpatient (BNV) | payer MEDICAID, SELFPAY ==
--- NOTE | 2023-03-24 15:10 | A.OFFVIS_ITS ---
Intake Intake Visit Reasons: Epigastric pain Allergies prednisone [PREDNISONE] Allergy (Severe, Verified 03/13/23 06:34) ITCHINESS, itching, moodiness medroxyprogesterone [From DEPO-PROVERA] Allergy (Intermediate, Verified 03/13/23 06:34) SHORTNESS OF BREATH general anesthesia Adverse Reaction (Intermediate, Uncoded 02/07/23 08:18) fluid in lung -per patient PFSH Medical History Depression GERD (gastroesophageal reflux disease) Hiatal hernia History of headache Surgical History H/O colonoscopy H/O esophagogastroduodenoscopy H/O tubal ligation Family History Father Diabetes Pericardial effusion Mother Diabetes Social History Household Members: Children Are you a primary healthcare customer service to a significant other at home: No Do you presently have visiting nurse or other home services: No Alcohol intake: current Alcohol intake frequency: holidays/special occasions only Patient Tobacco Use Status: Never used Tobacco Office Procedures AMB Capsule Endoscopy Procedure Notes: Capsule endoscopy date of service: 03/13/23 Indication: abdominal pain Findings: retained food noted in stomach, rest of small bowel was normal, no masses, ulcers seen Conclusion: gastroparesis normal small bowel Capsule Endoscopy CPT Code: 31239 - Capsule Endoscopy Assessment & Plan Assessment & Plan (1) Epigastric abdominal pain: Code(s): R10.13 - Epigastric pain Medications: Discontinued ondansetron 4 mg PO Q8H 60 tabs 1RF Coding Level of Care Code Procedure Only Diagnoses Epigastric abdominal pain R10.13 CPT Codes AMB Capsule Endoscopy - Capsule Endoscopy CPT Code: 91849 - Capsule Endoscopy ([id number])
== END ==
PROVIDERS: PCP Internal Medicine; Visit Provider Internal Medicine Gastroenterology
DX: R10.13 Epigastric pain (principal)
CPT/HCPCS: 43249; 91110

== ENCOUNTER 2023-04-25 10:16 | Outpatient (AMB) | payer MEDICAID, SELFPAY ==
--- NOTE | 2023-04-25 10:16 | A.OFFVIS_ITS ---
Intake Intake Visit Reasons: pyloric balloon dil. and pill cam place; Dr Chavarria Intake Note: Koki presents as a video call today. CC: She had EGD w/ Dil and she states she still feels like she has an issue with the foods going down. She has lots of belching and not sure why she is having that. She needs new Rx for Vit A. Allergies prednisone [PREDNISONE] Allergy (Severe, Verified 03/13/23 06:34) ITCHINESS, itching, moodiness medroxyprogesterone [From DEPO-PROVERA] Allergy (Intermediate, Verified 03/13/23 06:34) SHORTNESS OF BREATH general anesthesia Adverse Reaction (Intermediate, Uncoded 02/07/23 08:18) fluid in lung -per patient HPI pyloric balloon dil. and pill cam place; Dr Chavarria HPI Details 52 yr old f being called for f/u RECAP- initially saw [facility] [place] ? Omeprazole changed to famotodine-- some improvement- but not great. Epigastric pain worsens after she eats, early satiety. ? h pylori stool ag-- 09/2019--neg ? h pylori 11/2019--neg ? EGD 11/2019 with esophagitis and sliding hiatal hernia, bx: chronic esophagitis, moderate inactive gastric inflammation ? ? ? rept EGD with esophagitis, gastritis, ? gastroparesis--2 cm hiatal hernia GES--14% at 4 hrs EGD 01/2021-- botox injected, small hiatal hernia, pylorus dilated with 20 mm balloon she felt 60-70% improved since the botox and pyloric dilation She was doing well with lansoprazole 30 mg BID, and taking vit D3 She had repeat EGD with botox inj and balloon dilation 09/2022 due to recurrence of sx, GEJ was inflammed and boggy --gastric motility looked good, she had small hiatal hernia due to ongoing sx of epigastric pain I ordered a CTe 11/2022- some reflux noted in left ovarian vein She had EGD with balloon dilation of pylorus capsule placement was done, with retained food and nml small bowel INTERIM: she had 30% improvement in sx after the dilation I sent vit A but pharmacy never received it she still has epigastrium discomfort and satiety still on elavil 50 mg daily at night EXAM: GENERAL: The patient is well developed and nontoxic. relaxed. Assessments ? 1. Chronic reflux esophagitis, gastritis , h pylori neg- s/p EGD with botox and dilation ongoing sx, ?epigastric pain syndrome also has gastroparesis etiology of which is uncertain PLAN: 1/ cont with PPI 2/ discussed options of trying other med s e.g motegrity, reglan and surgery referral for pyloroplasty but she is not keen on these options, also offered another dialtion but again she is not keen on this, advised on maybe seeking a second opinion--she will consider this, and if needs referral will let me know [facility] Medical History Depression GERD (gastroesophageal reflux disease) Hiatal hernia History of headache Surgical History H/O colonoscopy H/O esophagogastroduodenoscopy H/O tubal ligation Family History Father Diabetes Pericardial effusion Mother Diabetes Social History Household Members: Children Are you a primary animal care worker to a significant other at home: No Do you presently have visiting nurse or other home services: No Alcohol intake: current Alcohol intake frequency: holidays/special occasions only Patient Tobacco Use Status: Never used Tobacco Assessment & Plan Assessment & Plan Medications: Refilled vitamin A palmitate 10,000 units PO DAILY 90 tabs 1RF Telehealth Telehealth Location of provider rendering services: practice address Location of patient: address on file Patient Identification confirmed using: Name, : Yes Telehealth method: video Patient verbally consented to treatment: Yes Patient verbally consented to billing insurance company: Yes Patient informed of any privacy concerns related to visit: Yes Minutes spent on Phone/Video with Pt.: 9 Coding Level of Care Code Tele Est Pt Level 3 (38029)
== END 2023-04-25 12:26 | disposition home or self-care (01) ==
LOC: HO.HGI 10:16
PROVIDERS: PCP Internal Medicine; Visit Provider Internal Medicine Gastroenterology
DX: K21.00 Gastro-esophageal reflux disease with esophagitis, without bleeding (principal); K29.70 Gastritis, unspecified, without bleeding
CPT/HCPCS: 99213

== ENCOUNTER → 2023-04-25 10:16 | Outpatient (BNVA) | payer MEDICAID, SELFPAY | PROVIDERS: PCP Internal Medicine; Visit Provider Internal Medicine Gastroenterology ==

== ENCOUNTER 2023-12-04 14:29 | Outpatient (REF) | payer MEDICAID, SELFPAY | END 2023-12-04 14:30 | disposition home or self-care (01) | LOC: HO.MAMMO 14:29 | PROVIDERS: PCP Pediatrics; Visit Provider Pediatrics | DX: Z12.31 Encounter for screening mammogram for malignant neoplasm of breast (principal) | CPT/HCPCS: 77063; 77067 ==

== ENCOUNTER → 2023-12-04 15:00 | Outpatient (BNV) | payer MEDICAID, SELFPAY | PROVIDERS: PCP Pediatrics; Visit Provider Radiology Diagnostic Radiology | DX: Z12.31 Encounter for screening mammogram for malignant neoplasm of breast (principal) | CPT/HCPCS: 77063; 77067 ==

== ENCOUNTER 2024-04-28 10:12 | Outpatient (REF) | payer MEDICAID, SELFPAY ==
[2024-04-28 14:44] LABS: MANUAL DIFF FLAG NO
[2024-04-28 14:49] LABS: Basophils Percent Auto 0.4 % (0-2); Eosinophils Absolute Auto 0.1 X10*3/uL (0.0-0.4); Hematocrit 39.6 % (37.0-47.0); Hemoglobin 13.8 g/dl (12.0-16.0); Imm Gran Abs Auto 0.01 X10*3/uL (0.00-0.03); Imm Gran Pct Auto 0.2 % (0.0-0.4); Lymphocytes Absolute Auto 1.4 X10*3/uL (1.2-4.9); Lymphocytes Percent Auto 27.6 % (20-40); Mean Corpuscular HGB Conc 34.8 g/dl (31.0-35.0); Mean Corpuscular Hemoglobin 31.8 pg (27.0-33.0); Mean Corpuscular Volume 91.2 fL (80.0-98.0); Mean Platelet Volume 11.4 fL (9.4-12.3); Monocytes Absolute Auto 0.3 X10*3/uL (0.1-1.2); Monocytes Percent Auto 5.9 % (2-11); Neutrophils Absolute Auto 3.2 x10*3/uL (2.0-8.3); Neutrophils Percent Auto 64.9 % (45-73); Platelet Count 145 X10*3/uL (160-400); Red Blood Count 4.34 X10*6/uL (4.20-5.50); Red Cell Distribution Width 13.4 % (11.0-16.0); White Blood Count 4.9 X10*3/uL (4.8-10.8)
[2024-04-28 14:51] LABS: Appearance Urine Clear; Color Urine Yellow; Glucose Urine UA Negative (Negative); Leukocyte Esterase Urine Negative (Negative); Nitrite Urine Negative (Negative); PH 6.5 (5.0-9.0); Urine Blood Negative (Negative); Urine Ketones Negative (Negative); Urine Protein Negative (Neg-Trace)
[2024-04-28 14:55] LABS: Bacteria Urine None Seen (None Seen); Hyaline Casts Urine 0-2 /LPF (0-2); RBC Urine 0-2 /HPF (0-2); Squamous Epithelial Cell Urine 0-2 /HPF (0-2); WBC Urine 0-5 /HPF (0-5)
[2024-04-28 15:15] LABS: Alanine Aminotransferase 19 U/L (0-31); Albumin Level 4.1 g/dL (3.5-5.0); Alkaline Phosphatase 81 U/L (39-117); Anion Gap 13 (12-20); Aspartate Amino Transferase 19 U/L (5-31); Bilirubin Direct 0.2 mg/dL (0.0-0.5); Bilirubin Total 0.7 mg/dL (0.0-1.0); Blood Urea Nitrogen 12 mg/dL (9-16); Calcium 9.5 mg/dL (8.4-10.2); Carbon Dioxide 28 mmol/L (22-29); Chloride 108 mmol/L (96-108); Cholesterol 185 mg/dL (<200); Estimated Glomerular Filt Rate > 60; Glucose Fasting 100 mg/dL (60-99); HDL Cholesterol 44 mg/dL (>40); LDL Cholesterol Calculated 109 mg/dL (<100); Potassium 4.7 mmol/L (3.3-5.1); Sodium 144 mmol/L (135-145); Total Protein 7.3 g/dL (6.5-8.0); Triglycerides 164 mg/dL (<150)
[2024-04-28 15:24] LABS: TSH reflex Free T4 1.33 uIU/mL (0.32-4.0); Vitamin D 25-OH Total 44.8 ng/mL (>30)
[2024-04-28 15:35] LABS: Folate 8.3 ng/mL (> or = 4.0); Vitamin B12 1142 pg/mL (200-900)
== END 2024-04-28 10:13 | disposition home or self-care (01) ==
LOC: HO.CHCLDS 10:12
PROVIDERS: Visit Provider Pediatrics
DX: E55.9 Vitamin D deficiency, unspecified (principal); K44.9 Diaphragmatic hernia without obstruction or gangrene; K21.00 Gastro-esophageal reflux disease with esophagitis, without bleeding; R35.89 Other polyuria; F32.3 Major depressive disorder, single episode, severe with psychotic features; N95.1 Menopausal and female climacteric states
CPT/HCPCS: 36415; 80048; 80061; 80076; 81001; 82306; 82607; 82746; 84443; 85025

== ENCOUNTER 2024-05-03 08:42 | Outpatient (REF) | payer MEDICAID, SELFPAY ==
--- NOTE | ~2024-05-03 | CT_ITS ---
EXAMINATION: CT HEAD WITHOUT CONTRAST CLINICAL INFORMATION: Chronic headaches, sister with recent stroke, rule out brain mass. COMPARISON: None available. TECHNIQUE: Contiguous axial imaging was performed from the skull base to vertex without intravenous administration of contrast. This CT examination was performed using dose optimization techniques as appropriate, variously including the following: *Automated exposure control *Adjustment of mA and/or kV according to patient size (this includes techniques or standardized protocols for targeted exams where dose is matched to indication/reason for exam; i.e. extremities or head) *Use of iterative reconstruction technique DLP: 616 mGy-cm FINDINGS: There is no evidence of intracranial hemorrhage or extra-axial fluid collection. There is no mass effect, or edema. No CT evidence of acute territorial infarct. Ventricles, sulci, and cisterns are normal in size and configuration for patient age. No hydrocephalus. No midline shift. No significant white matter abnormalities. Normal sella. Globes and orbital contents image normally. No extracranial soft tissue abnormalities. The paranasal sinuses, mastoid air cells, and tympanic cavities are normally aerated. No suspicious bony abnormalities. CT/CT head/brain wo IV con IMPRESSION: No acute intracranial pathology. Normal examination. Electronically signed by: Atilio Vu MD 06/30/2024 02:21 PM SHIRA
== END 2024-05-03 08:43 | disposition home or self-care (01) ==
LOC: HO.CT 08:42
PROVIDERS: PCP Pediatrics; Visit Provider Pediatrics
DX: G43.001 Migraine without aura, not intractable, with status migrainosus (principal)
CPT/HCPCS: 70450

== ENCOUNTER → 2024-05-03 08:44 | Outpatient (BNV) | payer MEDICAID, SELFPAY | PROVIDERS: PCP Pediatrics; Visit Provider Radiology Diagnostic Radiology | DX: R51.9 Headache, unspecified (principal) | CPT/HCPCS: 70450 ==

== ENCOUNTER → 2024-05-17 09:20 | Outpatient (REF) | payer MEDICAID, SELFPAY ==
--- NOTE | 2024-05-17 09:25 | CA_ITS ---
Acquisition Time: 2024-05-17 09:34:51 Total Exercise Time: 00:09:37 Test Indications: CHEST PAIN Medications: Protocol: JONATAN Max HR: 150 BPM 89% of Pred: 168 BPM Max BP: 168/060 mmHG Max Work Load: 11.1 METS Exercise stress test with exercise 9 min 37 sec of Jonatan protocol, achieving 89% MPHR, 11.1 METs, without anginal symptoms, without arrythmia, with normotensive response to exercise, with baseline EKG showing T wave abnormality inferolateral leads, then with exercise EKGs are normal without changes meeting criteria for ischemia. Test reviewed with Dr Davenport Referred By: Anastasiia Lucas Overread By: FELICITA UNDERWOOD
== END ==
LOC: HO.CARD 09:20
PROVIDERS: PCP Pediatrics; Visit Provider Pediatrics
DX: R07.89 Other chest pain (principal); Z82.49 Family history of ischemic heart disease and other diseases of the circulatory system
CPT/HCPCS: 93017

== ENCOUNTER → 2024-05-17 09:25 | Outpatient (BNV) | payer MEDICAID, SELFPAY | PROVIDERS: PCP Pediatrics; Visit Provider Nurse Practitioner Family | DX: R07.9 Chest pain, unspecified (principal) | CPT/HCPCS: 93016; 93018 ==

== ENCOUNTER 2024-12-06 09:10 | Outpatient (REF) | payer MEDICAID, SELFPAY ==
--- OUTSIDE RECORDS SUMMARY | 2024-12-06 09:19 | XMS_ITS | Clinical Summary ---
Author Organization [employer] Address [address] [place] [address] Care Team Providers Care Automation Tender Name Role Phone Anastasiia Lucas MD Primary Care Provider [phone] Allergies Active Allergy Reactions Criticality Noted Date Comments Prednisone Itching 01/16/2012 Promethazine Other reaction(s): vomiting Medications rizatriptan (Maxalt) 5 MG tablet TAKE 1 TABLET BY MOUTH ONCE A DAY, MAY REPEAT DOSE IN 2 HOURS IF NEEDED. *MAX 2 DOSES IN 24HOURS 2 Active QUEtiapine (SEROquel) 25 MG tablet TAKE ONE OR TWO TABLETS BY MOUTH AT BEDTIME 3 Active lamoTRIgine (LaMICtal) 25 MG tablet Take 2 tablets by mouth in the morning. 3 Active lamoTRIgine (LaMICtal) 150 MG tablet Take 1 tablet by mouth in the morning. 3 Active lamoTRIgine (LaMICtal) 100 MG tablet Take 1 tablet by mouth in the morning. 3 Active pregabalin (Lyrica) 75 MG capsule Take 1 capsule (75 mg) by mouth 2 times daily. 60 capsule 3 3 Active cholecalciferol (D3 Super Strength) 50 MCG (1999 UT) capsule TAKE 1 CAPSULE BY MOUTH EVERY TWELVE HOURS WITH MEALS 180 capsule 1 3 Active polyethylene glycol-electroly vandana (Nulytely) 420 g solution TAKE 240 MLS BY MOUTH EVERY 10 MINUTES UNTIL FECAL EFFLUENT IS CLEAR 3 Active mirtazapine (Remeron) 7.5 MG tablet Take 1 tablet (7.5 mg) by mouth at bedtime. 30 tablet 3 5 12/19/19 25 Active pantoprazole (ProtoNix) 20 MG EC tabletIndication s:Hiatal hernia with GERD and esophagitis TAKE 1 TABLET BY MOUTH TWICE A DAY 180 tablet 1 5 Active Active Problems Problem Noted Date Diagnosed Date H/O hiatal hernia 10/16/2022 Gastroesophageal reflux dise ase with esophagitis without hemorrhage 10/16/2022 Severe major depression with psychotic features 08/15/2017 Vitamin D deficiency 01/16/2012 Migraine 01/16/2012 Encounters Date Type Department Care Team Description 10/08/2024 Population Health Risk Score Community [facility] () Department [address] [address] Provider, Population Health Generic 09/30/2024 Refill [facility] [address] [place] [address] Anastasiia Lucas MD Hiatal hernia with GERD and esophagitis from Last 3 Months Immunizations Name Administration Dates Next Due Influenza injectable quadriv alent IIV4 with preservative 05/12/2019,05/26/2018,08/15/2017,2015,05/23/2015 Influenza injectable quadriv alent preservative free 05/14/2023,06/05/2022,06/20/2021,2019 Influenza, IIV3, injectable 05/05/2014, 9 Influenza, Split (incl. jeremy fied surface antigen) 05/05/2013,05/21/2012 Influenza, seasonal, injecta ble, preservative free 04/28/2024 Moderna Covid-19 Vaccine 12+ 12/23/2020,11/26/19 21 TD (adult), 2 Lf tetanus tox oid, preservative free, adsorbed 07/05/2005 Tdap 10/29/2016 Zoster, Recombinant 04/04/2022,01/31/2022 Social History Tobacco Use Types Packs/Day Years Used Date Smoking Tobacco: Never Passive Smoke Exposure: Never Smokeless Tobacco: Never Tobacco Cessation:Counseling Given: Not Answered Housing Stability Answer Date Recorded What is your housing situation today? I have yolette delgadillo 04/20/[address] you li ve. Do you have problems with any of the following? None of the above 04/20/2024 Food Insecurity Answer Date Recorded Within the past 12 months, y ou worried that your food would run out before you got money to buy more: Never True 04/20/2024 Within the past 12 months,th e food you bought just didn't last and you didn't have enough money to get more: Never True Transportation Answer Date Recorded In the past 12 months, has l ack of transportation kept you from medical appts, meetings, work or from getting things needed for daily living? No 04/20/2024 Utilities Answer Date Recorded In the past 12 months, has t he electric, gas, oil or water company threatened to shut off services in your home? No 04/20/2024 Depression Answer Date Recorded Patient Health Questionnaire-2 Score 3 10/16/2022 Internet Access Answer Date Recorded Internet Access Q1 Yes 04/20/2024 Internet Access Q2 Not on file 04/20/2024 Comments Unknown Sex and Gender Information Value Date Recorded Sex Assigned at Female 05/27/2022 10:20 AM EDT Legal Sex Female 10:20 AM EDT Gender Identity Female 05/27/2022 10:20 AM EDT Sexual Orientation Straight 05/27/2022 10 :20 AM EDT Last Filed Vital Signs Vital Sign Reading Time Taken Comments Blood Pressure 114/64 08/20/2024 8:59 AM EST Pulse 68 08/20/2024 8:59 AM EST Temperature 36.7 ??C (98.1 ??F) 08/20/2024 8:59 AM ES T Respiratory Rate 16 08/20/2024 8:59 AM EST Oxygen Saturation 98% 07/02/2024 9:07 AM EST Inhaled Oxygen Concentration - - Weight 58.1 kg (128 lb) 08/20/2024 8:59 AM EST Height 149.9 cm (4' 11 ) 08/20/2024 8:59 AM EST Body Mass Index 25.85 08/20/2024 8:59 AM EST Plan of Treatment Health Maintenance Due Date Last Done Comments CT Colonography 1971 FIT DNA/Cologuard 1971 FIT 1971 FOBT 1971 HIV Screening 1971 Sigmoidoscopy 1971 Hepatitis C Screening 1989 Hepatitis B Vaccines (1 of 3 - 19+ 3-dose series) 1990 Pneumococcal Vaccine: 50+ Years (1 of 1 - PCV) 2021 Depression Screening 10/17/2023 10/16/2022, 10/17/19 23 COVID-19 Vaccine (3 - season) 2024 12/23/2020, 11/25/2020 Pap Smear 06/20/2024 06/20/2021 Mammogram 12/03/2024 12/04/2023, 05/0 02/2023, 09/26/2021, Additional history exists SDOH Screening 04/20/2025 04/20/2024 Alcohol/Substance Use Screening 07/02/2025 07/02/2024 Tobacco Screening 08/20/2025 08/20/2024 Cervical Cancer Screening 06/20/2026 HPV/Cotest 06/20/2026 06/20/2021 DTaP/Tdap/Td Vaccines (2 - Td or Tdap) 10/29/2026 10/29/2016, 07/05/2005 Colonoscopy 06/27/2029 Colorectal Cancer Screening 06/27/2029 RSV Patients and Patients Aged 60 years or older (1 - 1-dose 75+ series) 2046 Zoster Vaccines Completed 04/04/2022, 01/31/2022 Influenza Vaccine Completed 04/28/2024, , 06/05/2022, Additional history exists HIB Vaccines Aged Out No longer eligi ble based on patient's age to complete this topic HPV Vaccines Aged Out No longer eligi ble based on patient's age to complete this topic Hepatitis A Vaccines Aged Out No long er eligible based on patient's age to complete this topic IPV Vaccines Aged Out No longer eligi ble based on patient's age to complete this topic Meningococcal Vaccine Aged Out No ginny cris eligible based on patient's age to complete this topic RSV under 20 months Aged Out No longe r eligible based on patient's age to complete this topic Rotavirus Vaccines Aged Out No longer eligible based on patient's age to complete this topic Procedures Procedure Name Priority Date/Time Associated Diagnosis Comments BI MAMMOGRAM SCREENING TOMOSYNTHESIS BILATERAL Routine 12/04/2023 2:50 PM EDT THINPREP IMAGING PAP AND HPV MRNA E6/E7 WITH REFLEX TO HPV 16,18/45 Routine 06/20/2021 11:28 AM EST from Last 3 Months or Most Recently Relevant to Health Maintenance Results * BI Mammogram Screening Tomosynthesis Bilateral (12/04/2023 2:50 PM EDT) Anatomical Region Laterality Modality Breast Bilateral Mammography 12/04/2023 2:50 PM EDT Narrative 01/02/2024 9:09 AM EDT ? [facility] [place] ? [address] ?[place] [address] ? Mammography Report ? Signed ? Patient: Koki Bennett ?MR#: [id number] ?? 84 ? : 1970 ?Acct:[id number] ? Age/Sex: 53 / F ?ADM Date: 12/04/23 ? Loc: HO.MAMMO ? Attending Dr: Anastasiia Lucas MD ? Ordering Physician: Anastasiia Lucas MD ?Results: 1Ne ?? gative ? Date of Service: 12/04/23 ?Follow Up: 1 Year From Orig ?? inal Mammogram ? Procedure(s): MM tomosynthesis screening BI ?? Accession Number(s): [id number] ? cc: Anastasiia Lucas MD ? EXAMINATION: ?? MM SCREENING DIGITAL BREAST TOMOSYNTHESIS, BILATERAL ? CLINICAL INFORMATION: ? Screening. Asymptomatic. ? COMPARISON: ?? Mammography: This study is compared with prior exams dating back to ?? 2018. ? TECHNIQUE: ?? Digital breast tomosynthesis is performed in both the craniocaudal and ?? mediolateral oblique views along with computer-aided detection (CAD). ?? Synthesized 2D images are generated from the tomosynthesis. ? FINDINGS: ?? There are scattered areas of fibroglandular density (ACR BI-RADS breast ?? composition Category b). ? There are no significant masses, abnormal calcifications, or other ?? abnormalities. ? MM/MM tomosynthesis screening BI ?? IMPRESSION: ?? No mammographic evidence of malignancy. ? ASSESSMENT: ? BI-RADS BI-RADS 1 - Negative ? RECOMMENDATION: ?? Routine annual mammography screening. ? 1 year F/U ? This examination should not preclude the clinical evaluation of a ?? suspicious palpable abnormality. ? This patient's information was entered into a reminder system with a ?? target due date for their next mammogram. ? Dictated By: ?Phyllis Sanchez MD ? Signed By: ?<Electronically signed by Phyllis Sanchez MD in OV> ? 01/02/24 09 ? DD/ 1450 ? TD/TT: ? Er Tech: ? Procedure Note Vidal Dobson - 01/02/2024 [facility] [address] [place] [address] Dr. [place], [place] [address] Mammography Report Signed Patient: Deng Bennett#: [id number] : 1970Acct:[id number] Age/Sex: 53 / FADM Date: 12/04/23 Loc: [facility] Attending Dr: Anastasiia Lucas MD Ordering Physician: Anastasiia Lucasesults: 1Ne gative Date of Service: 12/04/23Follow Up: 1 Year From Orig inal Mammogram Procedure(s): MM tomosynthesis screening BI Accession Number(s): [id number] cc: Anastasiia Lucas MD EXAMINATION: MM SCREENING DIGITAL BREAST TOMOSYNTHESIS, BILATERAL CLINICAL INFORMATION: Screening. Asymptomatic. COMPARISON: Mammography: This study is compared with prior exams dating back to 2019. TECHNIQUE: Digital breast tomosynthesis is performed in both the craniocaudal and mediolateral oblique views along with computer-aided detection (CAD). Synthesized 2D images are generated from the tomosynthesis. FINDINGS: There are scattered areas of fibroglandular density (ACR BI-RADS breast composition Category b). There are no significant masses, abnormal calcifications, or other abnormalities. MM/MM tomosynthesis screening BI IMPRESSION: No mammographic evidence of malignancy. ASSESSMENT: BI-RADS BI-RADS 1 - Negative RECOMMENDATION: Routine annual mammography screening. 1 year F/U This examination should not preclude the clinical evaluation of a suspicious palpable abnormality. This patient's information was entered into a reminder system with a target due date for their next mammogram. Dictated By: Phyllis Sanchez MD Signed By: <Electronically signed by Phyllis Sanchez MD in OV> 01/02/24 0905 DD/ 1450 TD/TT: Er Tech: Anastasiia Lucas MD [facility] BI PROCEDURES Edited Resu lt - Final * THINPREP TIS PAP AND HPV mRNA E6/E7 REFLEX HPV 16,18/45 (06/20/2021 11:28 AM EST) Clinical Information: None given [facility] COMMENT SEE COMMENT [facility] Comment: EXPLANATORY NOTE: ? The Pap is a screening test for cervical cancer. It is ?? not a diagnostic test and is subject to false negative ?? and false positive results. It is most reliable when a ?? satisfactory sample, regularly obtained, is submitted ?? with relevant clinical findings and history, and when ?? the Pap result is evaluated along with historic and ?? current clinical information. ?? COMMENT: This Pap test has been evaluated with computer assisted technology. [facility] Assistant Womens Volleyball Coach: SEE COMMENT [facility] Comment: HJP, CT(ASCP) CT screening location: [address] ??[id number] HPV nRNA E6/E7 Not Detected Not Detected [facility] Comment: Methodology: Pigeon Fancier-Mediated Amplification This assay detects E6/E7 viral messenger RNA (mRNA) from 14 high-risk HPV types (16,18,31,33,35,39,45,51,52,56,58,59,66,68). ? The analytical performance characteristics of this assay have been determined by [employer]. The modifications have not been cleared or approved by the FDA. This assay has been validated pursuant to the CLIA regulations and is used for clinical purposes. ?? For additional information, please refer to http://education.Showpad/faq/GQE116v1 (This link if provided for information/ educational purposes only.) Interpretation/Re sult: Negative for intraepithelial lesion or malignancy. [facility] LMP: 11/25/2020 [facility] Prev. BX: NONE GIVEN [facility] Prev. PAP: 05/26/2018 [facility] SOURCE: Cervix [facility] Statement Of Adequacy: SEE COMMENT [facility] Comment: Satisfactory for evaluation. Endocervical/transformation zone component absent. 06/20/2021 11:2 8 AM EST us Anastasiia Lucas MD LAB PATHOLOGY ORDERABLES Mandy noriega Result [facility] [address] from Last 3 Months or Most Recently Relevant to Health Maintenance Insurance [facility] [address] [place] [address] Care Teams Automation Tender Relationship Specialty Start Date End Date Anastasiia Lucas MD [address] [place] [id number] PCP - General Family Medicine 07/28/18
--- OUTSIDE RECORDS SUMMARY | 2024-12-06 09:19 | XMS_ITS | Encounter Summary ---
Author Organization [employer] Address [address] [place] [address] Care Team Providers Care Stem Roller Or Crusher Operator Name Role Phone Anastasiia Lucas MD Primary Care Provider [phone] Encounter Details Date Type Department Care Team ([facility] st Contact Info) Description 04/29/2024 Telephone [facility] MED & PEDS [address], [place] [phone] Anastasiia Lucas MD [address] [place], [place] [phone] Social History Tobacco Use Types Packs/Day Years Used Date Smoking Tobacco: Never Passive Smoke Exposure: Never Smokeless Tobacco: Never Housing Stability Answer Date Recorded What is [...] Orientation Straight 05/27/2022 10 :20 AM EDT documented as of this encounter Plan of Treatment Not on file documented as of this encounter Visit Diagnoses Not on filedocumented in this encounter Care Teams Stem Roller Or Crusher Operator Relationship Specialty Start Date End Date Anastasiia Lucas MD [address] [place] [id number] PCP - General Family Medicine 07/28/18 documented as of this encounter
--- OUTSIDE RECORDS SUMMARY | 2024-12-06 09:19 | XMS_ITS | Clinical Summary ---
Author Organization [employer] [facility] it Address [address] [place] [address] Care Team Providers Care First Aid Instructor Name Role Phone Unavailable Primary Care Provider Unavailabl e Surgical History Surgery Date Site/Laterality Comments OTHER SURGICAL HISTORY PROCEDURE: [place] LIG/TRNSXJ FLP TUBE ABDL/VAG APPR UNI/BI Medical History Medical History Date Comments Anxiety state, unspecified DX:An xiety state, unspecified Family History Medical History Relation Name Comments Diabetes Brother Coronary artery disease Father Diabetes Father Hypertension Father Coronary artery disease Mother Diabetes Mother Hypertension Mother Relation Name Status Comments Brother Father Alive Mother Alive Social History Tobacco Use Types Packs/Day Years Used Date Smoking Tobacco: Never Alcohol Use Standard Drinks/Week Comments No 0 (1 standard drink = 0.6 oz pur e alcohol) Comments Unknown Sex and Gender Information Value Date Recorded Sex Assigned at Not on file Legal Sex Female 5:07 AM EST Gender Identity Not on file Sexual Orientation Not on file Obstetrics History Plan of Treatment Health Maintenance Due Date Last Done Comments Breast Cancer Screening 1971 Hepatitis B Vaccines (1 of 3 - 19+ 3-dose series) 1990 Cervical Cancer Screening: P ap Smear 1992 DTaP,Tdap,and Td Vaccines (2 - Td or Tdap) 07/05/2015 07/05/2005 Pneumococcal Vaccine: 50+ Ye ars (1 of 1 - PCV) 2021 Zoster Vaccines (1 of 2) 2021 COVID-19 Vaccine (2023-2 5 season) 2024 Influenza Vaccine (Season Ended) 2025 HIB Vaccines Aged Out No longer eligi [...] on patient's age to complete this topic MMR Vaccines Aged Out No longer eligi ble based on patient's age to complete this topic Meningococcal ACWY Vaccine Aged Out N o longer eligible based on patient's age to complete this topic Meningococcal B Vaccine Aged Out No l onger eligible based on patient's age to complete this topic Pneumococcal Vaccine: Pediat rics (0 to 5 Years) and At-Risk Patients (6 to 64 Years) Aged Out No longer eligi ble based on patient's age to complete this topic RSV Immunization Patients Un adrienne 20 months Aged Out No longer eligible b ased on patient's age to complete this topic Varicella Vaccines Aged Out No longer eligible based on patient's age to complete this topic
== END 2024-12-06 09:11 | disposition home or self-care (01) ==
LOC: HO.MAMMO 09:10
PROVIDERS: PCP Pediatrics; Visit Provider Pediatrics
DX: Z13.89 Encounter for screening for other disorder (principal)

== ENCOUNTER 2025-02-15 12:11 | Outpatient (REF) | payer MEDICAID, SELFPAY ==
--- NOTE | ~2025-02-15 | MM_ITS ---
EXAMINATIONS: 1. MM DIAGNOSTIC DIGITAL BREAST TOMOSYNTHESIS, BILATERAL 2. US BREAST LIMITED LEFT CLINICAL INFORMATION: Left lump in upper-outer quadrant. Right breast pain. According to the patient, pain has resolved and unable to feel left breast lump today. COMPARISON: Comparison made to multiple prior, most recent December 04, 2023, and most remote February 15, 2016. TECHNIQUE: Digital breast tomosynthesis is performed in both the craniocaudal and mediolateral oblique views along with computer-aided detection (CAD). Synthesized 2D images are generated from the tomosynthesis. Skin marker was placed in the region of previously felt lump in the left breast. FINDINGS: BREAST COMPOSITION: There are scattered areas of fibroglandular density (ACR BI-RADS breast composition Category b). RIGHT BREAST: No significant masses, suspicious calcifications or other abnormalities are seen. LEFT BREAST: No significant masses, suspicious calcifications or other abnormalities are seen. In particular, no suspicious mammographic findings in the vicinity of the skin BB marker. Targeted ultrasound of the left breast was performed at that location of the previously felt a lump as indicated by the patient. The survey performed throughout the upper outer quadrant does not reveal suspicious sonographic findings. MM/MM tomosynthesis diagnostic BI IMPRESSION: RIGHT BREAST: Negative, no mammographic evidence of malignancy. Normal interval follow-up is recommended in 12 months. LEFT BREAST: Negative, no evidence of malignancy. No suspicious finding to accounts for patient's prior palpable concern. Clinical follow-up is recommended, independent of imaging findings. Otherwise, normal interval follow-up mammogram is recommended in 12 months. ASSESSMENT: BI-RADS 1 - Negative RECOMMENDATION: 1 year F/U Results were provided to the patient at time of visit by the technologist. This patient's information was entered into a reminder system with a target due date for their next mammogram. Electronically signed by: Eldon Richardson MD 02/15/2025 05:49 PM EDT
--- OUTSIDE RECORDS SUMMARY | 2025-02-15 13:16 | XMS_ITS | Clinical Summary ---
Author Organization [employer] [facility] it Address [address] [place] [address] Care Team Providers Care Airport Operations Crew Member Name Role Phone Unavailable Primary Care Provider Unavailabl e Surgical History Surgery Date Site/Laterality Comments OTHER SURGICAL HISTORY PROCEDURE: [place] LIG/TRNSXJ FLP TUBE ABDL/VAG APPR UNI/BI Medical [...] Vaccines (1 of 2) 2021 COVID-19 Vaccine ( - 2023-2 5 season) 2024 Depression Screening 07/28/2024 Influenza Vaccine (#1) 2025 HIB Vaccines Aged Out No longer [...]
--- OUTSIDE RECORDS SUMMARY | 2025-02-15 13:16 | XMS_ITS | Encounter Summary ---
Author Organization [employer] Address [address] [facility] [address] [place] [address] Care Team Providers Care Dial Painter Name Role Phone Anastasiia Lucas MD Primary Care Provider [phone] Encounter Details Date Type Department Care Team (Latest Contact Info) Description 02/10/2025 Travel Social History Tobacco Use Types Packs/Day Years [...] as of this encounter Plan of Treatment Upcoming Encounters Date Type Department Care Team ([facility] st Contact Info) Description 04/13/2025 9:15 AM EDT Office Visit [facility] MED & PEDS [address] [place] [address] Anastasiia Lucas MD [address] [place] [address] documented as of this encounter Visit Diagnoses Not on filedocumented in this encounter Care Teams Dial Painter Relationship Specialty Start Date End Date Anastasiia Lucas MD [address] [place] [address] PCP - General Family Medicine 07/28/18 documented as of this encounter
== END 2025-02-15 12:12 | disposition home or self-care (01) ==
LOC: HO.MAMMO 12:11
PROVIDERS: PCP Pediatrics; Visit Provider Family Medicine
DX: N64.4 Mastodynia (principal); N63.21 Unspecified lump in the left breast, upper outer quadrant
CPT/HCPCS: 76642; 77062; 77066

== ENCOUNTER → 2025-02-15 12:30 | Outpatient (BNV) | payer MEDICAID, SELFPAY | PROVIDERS: PCP Pediatrics; Visit Provider Radiology Body Imaging | DX: N64.4 Mastodynia (principal); N63.21 Unspecified lump in the left breast, upper outer quadrant | CPT/HCPCS: 76642; 77062; 77066 ==

== ENCOUNTER 2025-04-05 09:19 | Outpatient (REF) | payer MEDICAID, SELFPAY ==
--- NOTE | 2025-04-05 09:22 | EMG_ITS ---
Chief complaint: Chronic pain of left wrist Reason for referral: NCV/ EMG Referred by: Anastasiia Lucas MD Procedure done: Nerve conduction study and EMG was performed of left upper extremity, symptomatic extremity Left median and ulnar motor and sensory studies were performed left radial sensory and median lateral antecubital brachial sensory studies were performed an EMG needle examination was performed Impression: 1. Mild left median neuropathy across carpal tunnel 2. Mild ulnar neuropathy across elbow MTDD
--- OUTSIDE RECORDS SUMMARY | 2025-04-05 10:45 | XMS_ITS | Clinical Summary ---
Author Organization [employer] [facility] it Address [address] [place] [address] Care Team Providers Care Nutrition Assistant Name Role Phone Unavailable Primary Care Provider Unavailabl e Surgical History Surgery Date Site/Laterality Comments OTHER SURGICAL HISTORY PROCEDURE: [place] LIG/TRNSXJ FLP TUBE ABDL/VAG APPR UNI/BI Medical [...] 2021 Zoster Vaccines (1 of 2) 2021 Depression Screening 07/28/2024 COVID-19 Vaccine ( - 2023-2 5 season) 2025 Influenza Vaccine (#1) 2025 HIB Vaccines Aged [...]
--- OUTSIDE RECORDS SUMMARY | 2025-04-05 10:45 | XMS_ITS | Encounter Summary ---
Author Organization [employer] Address [address] [facility] [address]t [place] [address] Care Team Providers Care Hydrate Control Tender Name Role Phone Anastasiia Lucas MD Primary Care Provider [phone] Encounter Details Date Type Department Care Team ([facility] Contact Info) Description 04/29/2024 Telephone C [facility] MED [facility]S [address] [place], [place] [phone] Anastasiia Lucas MD [address] [place], [place] [phone] Social History Tobacco Use Types Packs/Day Years [...] Upcoming Encounters Date Type Department Care Team (Late st Contact Info) Description 04/13/2025 9:15 AM EDT Office Visit [facility] MED & PEDS [address] [place] [address] Anastasiia Lucas MD [address] [place] [address] documented as of this encounter Visit Diagnoses Not on filedocumented in this encounter Care Teams Hydrate Control Tender Relationship Specialty Start Date End Date Anastasiia Lucas MD [address] [place] [address] PCP - General Family Medicine 07/28/18 documented as of this encounter
--- OUTSIDE RECORDS SUMMARY | 2025-04-05 10:45 | XMS_ITS | Encounter Summary ---
Author Organization [employer] Address [address] [facility] [address] [place] [address] Care Team Providers Care Green Inspector Name Role Phone Anastasiia Lucas MD Primary Care Provider [phone] Reason for Visit * Reason Comments Med Refill Encounter Details Date Type Department Care Team ([facility] Contact Info) Description 03/31/2025 Refill [facility] MED & PEDS [address] [place], [place] [phone] Anastasiia Lucas MD [address] [place] [address] Hiatal hernia with GERD and esophagitis Social History Tobacco Use Types Packs/Day Years [...] Description 04/13/2025 9:15 AM EDT Office Visit [facility] MED & PEDS [address] [place] [address] Anastasiia Lucas MD [address] [place] [address] documented as of this encounter Visit Diagnoses Diagnosis Hiatal hernia with GERD and esophagitis documented in this encounter Care Teams Green Inspector Relationship Specialty Start Date End Date Anastasiia Lucas MD [address] [place] [address] PCP - General Family Medicine 07/28/18 documented as of this encounter
--- OUTSIDE RECORDS SUMMARY | 2025-04-05 10:45 | XMS_ITS | Clinical Summary ---
Author Organization [employer] Address [address] [facility] [address] [place] [address] Care Team Providers Care Fruit Culler Name Role Phone Anastasiia Lucas MD Primary Care Provider [phone] Allergies Active Allergy Reactions Criticality Noted Date Comments Prednisone Itching 01/16/2012 Promethazine Other reaction(s): vomiting Medications rizatriptan (Maxalt) 5 MG tablet TAKE 1 TABLET BY MOUTH ONCE A DAY, MAY REPEAT DOSE IN 2 HOURS IF NEEDED. *MAX 2 DOSES IN 24HOURS 06/25/20 22 Active QUEtiapine (SEROquel) 25 MG tablet TAKE ONE OR TWO TABLETS BY MOUTH AT BEDTIME 08/27/19 23 Active lamoTRIgine (LaMICtal) 25 MG tablet Take 2 tablets by mouth in the morning. 08/25/19 23 Active lamoTRIgine (LaMICtal) 150 MG tablet Take 1 tablet by mouth in the morning. 08/25/19 23 Active lamoTRIgine (LaMICtal) 100 MG tablet Take 1 tablet by mouth in the morning. 08/25/19 23 Active pregabalin (Lyrica) 75 MG capsule Take 1 capsule (75 mg) by mouth 2 times daily. 60 capsule 3 10/17/19 23 Active cholecalciferol (D3 Super Strength) 50 MCG (2000 UT) capsule TAKE 1 CAPSULE BY MOUTH EVERY TWELVE HOURS WITH MEALS 180 capsule 1 05/26/20 23 Active polyethylene glycol-electrol ytes (Nulytely) 420 g solution TAKE 240 MLS BY MOUTH EVERY 10 MINUTES UNTIL FECAL EFFLUENT IS CLEAR 12/14/19 23 Active mirtazapine (Remeron) 7.5 MG tablet Take 1 tablet (7.5 mg) by mouth at bedtime. 30 tablet 3 02/11/20 25 Active pantoprazole (ProtoNix) 20 MG EC tabletIndicatio ns:Hiatal hernia with GERD and esophagitis TAKE 1 TABLET BY MOUTH TWICE A DAY 180 tablet 1 03/31/20 25 Active pantoprazole (ProtoNix) 20 MG EC tabletIndicatio ns:Hiatal hernia with GERD and esophagitis TAKE 1 TABLET BY MOUTH TWICE A DAY 180 tablet 1 10/01/19 25 025 Discontinued Active Problems Problem Noted Date Diagnosed Date Mass of upper outer quadrant of left breast 03/2025 Assessment & Plan (01/03/2025 11:30 AM EDT): Patient experiencing global bilateral breast pain, non cyclic and left breast with mass 3.5 cm x 1.0 cm at 3 o'clock LMP 2-3 yrs ago Following CRICO guidelines needs bilateral diagnostic mammo and left side breast US - schedule f/up with PCP in 1 mo H/O hiatal hernia 10/16/2022 Gastroesophageal reflux dise ase with esophagitis without hemorrhage 10/16/2022 Severe major depression with psychotic features 08/15/2017 Vitamin D deficiency 01/16/2012 Migraine 01/16/2012 Resolved Problems Problem Noted Date Diagnosed Date Resolved Date Breast pain, right 01/03/2025 Encounters Date Type Department Care Team Description 03/31/2025 Refill [facility] [address] [place] [address] Anastasiia Lucas MD Hiatal hernia with GERD and esophagitis 02/16/2025 Results Follow-Up [facility] [address] [place] [address] Sherri Ruggiero MD BI US Breast Limited Left, BI Mammogram Diagnostic Tomosynthesis Bilateral 02/14/2025 Orders Only [facility] [address] [place] [address] Devika De León Mass of upper outer quadrant of left breast (Primary Dx) 02/10/2025 1:15 PM EDT Office Visit [facility] [address] [place] [address] Anastasiia Lucas MD Chronic pain of left wrist (Primary Dx); Carpal tunnel syndrome, bilateral; Severe major depression with psychotic features (CMS/HCC); Mass of upper outer quadrant of left breast; Elevated BP without diagnosis of hypertension 02/10/2025 Orders Only [facility] [address] [place] [address] Anastasiia Lucas MD Chronic pain of left wrist (Primary Dx); Carpal tunnel syndrome, bilateral 02/10/2025 Telephone [place] [employer] [facility] [employer] [facility] [address] [place] [address] [phone] Anastasiia Lucas MD EMG ORDER 02/10/2025 Travel 02/09/2025 Telephone [facility] [address] [place], [place] [phone] Anastasiia Lucas MD Chart Prep 01/03/2025 11:15 AM EDT Office Visit [facility] [address] [place], [place] [phone] Sherri Ruggiero MD Breast pain, right (Primary Dx); Mass of upper outer quadrant of left breast 01/03/2025 Travel from Last 3 Months Immunizations Immunization Administration Dates Next Due Influenza injectable quadriv [...] Sign Reading Time Taken Comments Blood Pressure 146/84 02/10/2025 1:14 PM EDT Pulse 74 02/10/2025 1:14 PM EDT Temperature 36.6 C (97.8 F) 02/10/2025 1:14 PM EDT Respiratory Rate 16 02/10/2025 1:14 PM EDT Oxygen Saturation 98% 01/03/2025 11:14 AM EDT Inhaled Oxygen Concentration - - Weight 58.5 kg (129 lb) 02/10/2025 1:14 PM EDT Height 151 cm (4' 11.45 ) 01/03/2025 11:14 AM ED T Body Mass Index 25.66 01/03/2025 11:14 AM EDT Plan of Treatment Upcoming Encounters Date Type Department Care Team (Late st Contact Info) Description 04/13/2025 9:15 AM EDT Office Visit [facility] [address] [place] [address] Anastasiia Lucas MD [address] [place] [address] Health Maintenance Due Date Last Done Comments CT Colonography 1971 FIT DNA/Cologuard 1971 FIT 1971 FOBT 1970 HIV Screening 1970 Sigmoidoscopy 1971 Disability Screening 1971 Hepatitis C Screening 1989 Hepatitis B Vaccines (1 of 3 - 19+ 3-dose series) 1990 Pneumococcal Vaccine: 50+ Years (1 of 1 - PCV) 2021 Depression Screening 10/17/2023 10/16/2022, 10/17/19 23 COVID-19 Vaccine ( season) 2025 12/23/2020, 11/25/2020 Influenza Vaccine (#1) 2025 , 05/14/2023, 06/05/2022, Additional history exists SDOH Screening 04/20/2025 04/20/2024 Alcohol/Substance Use Screening 07/02/2025 07/02/2024 Tobacco Screening 02/10/2026 02/10/2025 Mammogram 02/15/2026 02/15/2025, 01/26, 12/04/2023, Additional history exists Cervical Cancer Screening 06/20/2026 HPV/Cotest 06/20/2026 06/20/2021 Pap Smear 06/20/2026 06/20/2021 DTaP/Tdap/Td Vaccines (2 - Td or Tdap) 10/29/2026 10/29/2016, 07/05/2005 Colonoscopy 06/27/2029 Colorectal Cancer Screening 06/27/2029 RSV Patients and Patients Aged 60 years or older (1 - 1-dose 75+ series) 2046 Zoster Vaccines Completed 04/04/2022, 01/31/2022 HIB Vaccines Aged Out No longer eligi [...] Priority Date/Time Associated Diagnosis Comments BI MAMMOGRAM DIAGNOSTIC TOMOSYNTHESIS BILATERAL Routine 02/15/2025 12:35 PM EDT Mass of upper outer quadrant of left breast BI US BREAST LIMITED LEFT Routine 02/15/2025 12:30 PM EDT Mass of upper outer quadrant of left breast THINPREP IMAGING PAP AND HPV MRNA E6/E7 WITH REFLEX TO HPV 16,18/45 Routine 06/20/2021 11:28 AM EST from Last 3 Months or Most Recently Relevant to Health Maintenance Results * BI Mammogram Diagnostic Tomosynthesis Bilateral (02/15/2025 12:35 PM EDT) Anatomical Region Laterality Modality Breast Bilateral Mammography 02/15/2025 12:3 5 PM EDT Narrative 02/15/2025 5:52 PM EDT [facility] [address] [place] [address] [place] [address] Mammography Report Signed Patient: Koki Bennett MR#: [id number] 84 : 1970 Acct:[id number] Age/Sex: 54 / F ADM Date: 02/15/25 Loc: HO.MAMMO Attending Dr: Sherri Ruggiero MD Ordering Physician: Sherri Ruggiero MD Results: 1Nega tive Date of Service: 02/15/25 Follow Up: 1 Year From Orig inal Mammogram Procedure(s): MM tomosynthesis diagnostic BI Accession Number(s): [id number] cc: Anastasiia Lucas MD; Sherri Ruggiero MD EXAMINATIONS: 1. MM DIAGNOSTIC DIGITAL BREAST TOMOSYNTHESIS, BILATERAL 2. US BREAST LIMITED LEFT CLINICAL INFORMATION: Left lump in upper-outer quadrant. Right breast pain. According to the patient, pain has resolved and unable to feel left breast lump today. COMPARISON: Comparison made to multiple prior, most recent December 04, 2023, and most remote February 15, 2016. TECHNIQUE: Digital breast tomosynthesis is performed in both the craniocaudal and mediolateral oblique views along with computer-aided detection (CAD). Synthesized 2D images are generated from the tomosynthesis. Skin marker was placed in the region of previously felt lump in the left breast. FINDINGS: BREAST COMPOSITION: There are scattered areas of fibroglandular density (ACR BI-RADS breast composition Category b). RIGHT BREAST: No significant masses, suspicious calcifications or other abnormalities are seen. LEFT BREAST: No significant masses, suspicious calcifications or other abnormalities are seen. In particular, no suspicious mammographic findings in the vicinity of the skin BB marker. Targeted ultrasound of the left breast was performed at that location of the previously felt a lump as indicated by the patient. The survey performed throughout the upper outer quadrant does not reveal suspicious sonographic findings. MM/MM tomosynthesis diagnostic BI IMPRESSION: RIGHT BREAST: Negative, no mammographic evidence of malignancy. Normal interval follow-up is recommended in 12 months. LEFT BREAST: Negative, no evidence of malignancy. No suspicious finding to accounts for patient's prior palpable concern. Clinical follow-up is recommended, independent of imaging findings. Otherwise, normal interval follow-up mammogram is recommended in 12 months. ASSESSMENT: BI-RADS 1 - Negative RECOMMENDATION: 1 year F/U Results were provided to the patient at time of visit by the technologist. This patient's information was entered into a reminder system with a target due date for their next mammogram. Electronically signed by: Eldon Richardson MD 02/15/2025 05:49 PM EDT Dictated By: Eldon Richardson MD Signed By: <Electronically signed by Eldon Richardson MD in OV> 02/15/25 3504 DD/ 1235 TD/TT: 02/15/25 1300 Pacu Nurse: Procedure Note Donotuseinterpreter, Image - 02/15/2025 [facility] [address] [place] [address] Mammography Report Signed Patient: Deng Bennett#: [id number] 84 : 1970Acct:[id number] Age/Sex: 54 / FADM Date: 02/15/25 Loc: HO.MAMMO Attending Dr: Sherri Ruggiero MD Ordering Physician: Sherri Ruggiero MDResults: 1Nega tive Date of Service: 02/15/25Follow Up: 1 Year From Orig inal Mammogram Procedure(s): MM tomosynthesis diagnostic BI Accession Number(s): [id number] cc: Anastasiia Lucas MD; Sherri Ruggiero MD EXAMINATIONS: 1. MM DIAGNOSTIC DIGITAL BREAST TOMOSYNTHESIS, BILATERAL 2. US BREAST LIMITED LEFT CLINICAL INFORMATION: Left lump in upper-outer quadrant. Right breast pain. According to the patient, pain has resolved and unable to feel left breast lump today. COMPARISON: Comparison made to multiple prior, most recent December 04, 2023, and most remote February 15, 2016. TECHNIQUE: Digital breast tomosynthesis is performed in both the craniocaudal and mediolateral oblique views along with computer-aided detection (CAD). Synthesized 2D images are generated from the tomosynthesis. Skin marker was placed in the region of previously felt lump in the left breast. FINDINGS: BREAST COMPOSITION: There are scattered areas of fibroglandular density (ACR BI-RADS breast composition Category b). RIGHT BREAST: No significant masses, suspicious calcifications or other abnormalities are seen. LEFT BREAST: No significant masses, suspicious calcifications or other abnormalities are seen. In particular, no suspicious mammographic findings in the vicinity of the skin BB marker. Targeted ultrasound of the left breast was performed at that location of the previously felt a lump as indicated by the patient. The survey performed throughout the upper outer quadrant does not reveal suspicious sonographic findings. MM/MM tomosynthesis diagnostic BI IMPRESSION: RIGHT BREAST: Negative, no mammographic evidence of malignancy. Normal interval follow-up is recommended in 12 months. LEFT BREAST: Negative, no evidence of malignancy. No suspicious finding to accounts for patient's prior palpable concern. Clinical follow-up is recommended, independent of imaging findings. Otherwise, normal interval follow-up mammogram is recommended in 12 months. ASSESSMENT: BI-RADS 1 - Negative RECOMMENDATION: 1 year F/U Results were provided to the patient at time of visit by the technologist. This patient's information was entered into a reminder system with a target due date for their next mammogram. Electronically signed by: Eldon Richardson MD 02/15/2025 05:49 PM EDT Workstation: [employer] Dictated By: Eldon Richardson MD Signed By: <Electronically signed by Eldon Rcihardson MD in OV> 02/15/25 1749 DD/ 1235 TD/TT: 02/15/25 1300 Pacu Nurse: us Sherri Ruggiero MD IMG BI PROCEDURES Final Resul t * BI US Breast Limited Left (02/15/2025 12:30 PM EDT) Anatomical Region Laterality Modality Breast Left Ultrasound 02/15/2025 12:3 0 PM EDT Narrative 02/15/2025 5:52 PM EDT [facility] [address] [place], [place] [address] Ultrasound Report Signed Patient: Koki Bennett MR#: [id number] 84 : 1970 Acct:[id number] Age/Sex: 54 / F ADM Date: 02/15/25 Loc: HO.MAMMO Attending Dr: Sherri Ruggiero MD Ordering Physician: Sherri Ruggiero MD Date of Service: 02/15/25 Procedure(s): US breast LT limited Accession Number(s): [id number] cc: Anastasiia Lucas MD; Sherri Ruggiero MD EXAMINATIONS: 1. MM DIAGNOSTIC DIGITAL BREAST TOMOSYNTHESIS, BILATERAL 2. US BREAST LIMITED LEFT CLINICAL INFORMATION: Left lump in upper-outer quadrant. Right breast pain. According to the patient, pain has resolved and unable to feel left breast lump today. COMPARISON: Comparison made to multiple prior, most recent December 04, 2023, and most remote February 15, 2016. TECHNIQUE: Digital breast tomosynthesis is performed in both the craniocaudal and mediolateral oblique views along with computer-aided detection (CAD). Synthesized 2D images are generated from the tomosynthesis. Skin marker was placed in the region of previously felt lump in the left breast. FINDINGS: BREAST COMPOSITION: There are scattered areas of fibroglandular density (ACR BI-RADS breast composition Category b). RIGHT BREAST: No significant masses, suspicious calcifications or other abnormalities are seen. LEFT BREAST: No significant masses, suspicious calcifications or other abnormalities are seen. In particular, no suspicious mammographic findings in the vicinity of the skin BB marker. Targeted ultrasound of the left breast was performed at that location of the previously felt a lump as indicated by the patient. The survey performed throughout the upper outer quadrant does not reveal suspicious sonographic findings. US/US breast LT limited IMPRESSION: RIGHT BREAST: Negative, no mammographic evidence of malignancy. Normal interval follow-up is recommended in 12 months. LEFT BREAST: Negative, no evidence of malignancy. No suspicious finding to accounts for patient's prior palpable concern. Clinical follow-up is recommended, independent of imaging findings. Otherwise, normal interval follow-up mammogram is recommended in 12 months. ASSESSMENT: BI-RADS 1 - Negative RECOMMENDATION: 1 year F/U Results were provided to the patient at time of visit by the technologist. This patient's information was entered into a reminder system with a target due date for their next mammogram. Electronically signed by: Eldon Richardson MD 02/15/2025 05:49 PM EDT Dictated By: Eldon Richardson MD Signed By: <Electronically signed by Eldon Richardson MD in OV> 02/15/25 1749 DD/ 1230 TD/TT: 02/15/25 1322 Pacu Nurse: Procedure Note Donotuseinterpreter, Image - 02/15/2025 [facility] [address] [place] [address] Ultrasound Report Signed Patient: Mariel BennettR#: [id number] 84 : 1970Acct:[id number] Age/Sex: 54 / FADM Date: 02/15/25 Loc: HO.MAMMO Attending Dr: Sherri Ruggiero MD Ordering Physician: Sherri Ruggiero MD Date of Service: 02/15/25 Procedure(s): US breast LT limited Accession Number(s): [id number] cc: Anastasiia Lucas MD; Sherri Ruggiero MD EXAMINATIONS: 1. MM DIAGNOSTIC DIGITAL BREAST TOMOSYNTHESIS, BILATERAL 2. US BREAST LIMITED LEFT CLINICAL INFORMATION: Left lump in upper-outer quadrant. Right breast pain. According to the patient, pain has resolved and unable to feel left breast lump today. COMPARISON: Comparison made to multiple prior, most recent December 04, 2023, and most remote February 15, 2016. TECHNIQUE: Digital breast tomosynthesis is performed in both the craniocaudal and mediolateral oblique views along with computer-aided detection (CAD). Synthesized 2D images are generated from the tomosynthesis. Skin marker was placed in the region of previously felt lump in the left breast. FINDINGS: BREAST COMPOSITION: There are scattered areas of fibroglandular density (ACR BI-RADS breast composition Category b). RIGHT BREAST: No significant masses, suspicious calcifications or other abnormalities are seen. LEFT BREAST: No significant masses, suspicious calcifications or other abnormalities are seen. In particular, no suspicious mammographic findings in the vicinity of the skin BB marker. Targeted ultrasound of the left breast was performed at that location of the previously felt a lump as indicated by the patient. The survey performed throughout the upper outer quadrant does not reveal suspicious sonographic findings. US/US breast LT limited IMPRESSION: RIGHT BREAST: Negative, no mammographic evidence of malignancy. Normal interval follow-up is recommended in 12 months. LEFT BREAST: Negative, no evidence of malignancy. No suspicious finding to accounts for patient's prior palpable concern. Clinical follow-up is recommended, independent of imaging findings. Otherwise, normal interval follow-up mammogram is recommended in 12 months. ASSESSMENT: BI-RADS 1 - Negative RECOMMENDATION: 1 year F/U Results were provided to the patient at time of visit by the technologist. This patient's information was entered into a reminder system with a target due date for their next mammogram. Electronically signed by: Eldon Richardson MD 02/15/2025 05:49 PM EDT Workstation: [employer] Dictated By: Eldon Richardson MD Signed By: <Electronically signed by Eldon Richardson MD in OV> 02/15/25 1749 DD/ 1230 TD/TT: 02/15/25 1322 Pacu Nurse: us Sherri Ruggiero MD IM US PROCEDURES Final Resul t * THINPREP TIS PAP AND HPV mRNA E6/E7 REFLEX HPV 16,18/45 (06/20/2021 11:28 AM EST) Clinical Information: None given [facility] COMMENT SEE COMMENT [facility] Comment: EXPLANATORY NOTE: The Pap is a screening test for cervical cancer. It is not a diagnostic test and is subject to false negative and false positive results. It is most reliable when a satisfactory sample, regularly obtained, is submitted with relevant clinical findings and history, and when the Pap result is evaluated along with historic and current clinical information. COMMENT: This Pap test has been evaluated with computer assisted technology. [facility] [employer] Alarm Assembler: SEE COMMENT [facility] Comment: HJP, CT(ASCP) CT screening location: [place] [address] HPV nRNA E6/E7 Not Detected Not Detected [facility] [employer] Comment: Methodology: [employer]-Mediated Amplification This assay detects E6/E7 viral messenger RNA (mRNA) from 14 high-risk HPV types (16,18,31,33,35,39,45,51,52,56,58,59,66,68). The analytical performance characteristics of this assay have been determined by [employer]. The modifications have not been cleared or approved by the FDA. This assay has been validated pursuant to the CLIA regulations and is used for clinical purposes. For additional information, please refer to http://education.Replise/faq/HQF645b9 (This link if provided for information/ educational purposes only.) Interpretation/Re sult: Negative for intraepithelial lesion or malignancy. [facility] LMP: 11/25/2020 [facility] Prev. BX: NONE GIVEN [facility] Prev. PAP: 05/26/2018 [facility] SOURCE: [facility] Statement Of Adequacy: SEE COMMENT [facility] Comment: Satisfactory for evaluation. Endocervical/transformation zone component absent. 06/20/2021 11:2 8 AM EST us Anastasiia Lucas MD LAB PATHOLOGY ORDERABLES Mandy hari Result [facility] [address] from Last 3 Months or Most Recently Relevant to Health Maintenance Insurance [employer] C3 Care Teams Fruit Culler Relationship Specialty Start Date End Date Anastasiia Lucas MD [address] [place], [place] PCP - General Family Medicine 07/28/18
== END 2025-04-05 09:20 | disposition home or self-care (01) ==
LOC: HO.NEURO 09:19
PROVIDERS: PCP Pediatrics; Visit Provider Pediatrics
DX: G56.03 Carpal tunnel syndrome, bilateral upper limbs (principal)
CPT/HCPCS: 95886; 95910

== ENCOUNTER → 2025-04-05 09:22 | Outpatient (BNV) | payer MEDICAID, SELFPAY | PROVIDERS: PCP Pediatrics; Visit Provider Psychiatry & Neurology Neurology | DX: M25.532 Pain in left wrist (principal); G89.29 Other chronic pain; G56.02 Carpal tunnel syndrome, left upper limb | CPT/HCPCS: 95886; 95909 ==